=== PATIENT | female | born 1980 | race Caucasian/White ===

== ENCOUNTER → 2021-01-26 13:56 | Outpatient (CLI) | payer OTHER, SELFPAY ==
--- NOTE | ~2021-01-26 | US_ITS ---
EXAMINATION: US pelvic complete DATE: 01/26/2021 14:21 INDICATION: Abnormal uterine bleeding TECHNIQUE: Multiple transabdominal and endovaginal sonographic images of the pelvis were obtained. COMPARISON: None. FINDINGS: The uterus measures 9.7 x 4.7 x 5.5 cm. The endometrial complex measures 8 mm. The right ov syed measures 2.7 x 1.3 x 1.9 cm. The left ovary measures 2.9 x 2.4 x 3.0 cm. There is normal vascular flow in the ovaries. There is no free fluid in the pelvis. IMPRESSION: 1. No sonographic correlate for the patient's symptoms. Reviewed, dictated and finalized at location A.
--- NOTE | ~2021-01-26 | MM_ITS ---
EXAMINATION: MM screening karina BI w iggy HISTORY: Screening mammogram TECHNIQUE: Craniocaudal and mediolateral oblique 3-D tomosynthesis images were obtained and synthetic 2-D images were generated. Bilateral rotated lateral cc views. CAD analysis was submitted and interp reted. COMPARISON: 04/16/2019 bilateral diagnostic digital mammogram and limited right breast ultrasound exam ination BREAST PARENCHYMAL COMPOSITION: There are scattered areas of fibroglandular density. FINDINGS: There is interval mild enlargement of a previously biopsied posterior 2:00 upper inner quad rant incompletely irregular right breast mass, currently measuring up to 11-12 mm compared to 8.8 mm on 04/12/2019. There is an adjacent biopsy marker. Diagnostic right mammogram and right breast ultraso und examination are recommended. Otherwise there is no evidence of suspicious mass, calcification, or architectural distortion to sugg est malignancy in either breast. There has been no other suspicious interval change. IMPRESSION: 1. Interval enlargement of posterior upper inner quadrant right breast mass 2. Diagnostic right mammogram and right breast ultrasound examination are recommended. BI-RADS Category 0: Incomplete: Needs additional imaging evaluation. Reviewed, dictated and finalized at location A. IMPRESSION: 1. Interval enlargement of posterior upper inner quadrant right breast mass 2. Diagnostic right mammogram and right breast ultrasound examination are recom mended. BI-RADS Category 0: Incomplete: Needs additional imaging evaluation.
== END ==
PROVIDERS: Visit Provider Nurse Practitioner
DX: N93.8 Other specified abnormal uterine and vaginal bleeding (principal); Z12.31 Encounter for screening mammogram for malignant neoplasm of breast; R92.8 Other abnormal and inconclusive findings on diagnostic imaging of breast
CPT/HCPCS: 76856; 77063; 77067

== ENCOUNTER → 2021-02-18 08:52 | Outpatient (CLI) | payer OTHER, SELFPAY ==
--- NOTE | ~2021-02-18 | MMUS_ITS ---
EXAMINATION: MM diagnostic mammo unilat RT, US breast RT limited HISTORY: Interval enlargement of soft tissue mass in posterior upper inner right breast since 05/23/20 19 TECHNIQUE: Additional 3-D tomosynthesis images of the right breast were performed and synthetic 2-D i mages were generated. CAD analysis was submitted and interpreted. High resolution upper inner quadran t right breast ultrasound was performed. COMPARISON: 01/26/2021, 05/23/2019 bilateral digital screening mammogram examinations FINDINGS: MAMMOGRAPHIC FINDINGS: Again noted is a biopsy marker adjacent to a circumscribed irregular up to 9 x 15 mm opacity in the p osterior aspect of the upper inner quadrant of the right breast. This is increased from approximately 7 x 8.4 mm since 05/23/2019 mammogram, at which time the biopsy marker was also present. ULTRASOUND: There is an irregular circumscribed hypoechoic solid lesion with internal vascularity at 2:00 5 cm fr om the nipple. The lesion measures up to approximately 10.6 x 9.5 x 11.5 mm. (This previously measure d 7.5 x 7.3 x 10 mm on 04/16/2019 ultrasound examination.) There is a prominent irregular tongue-like projection posteriorly. No posterior features are noted. Increased size and irregular margins and the posterior soft tissue projection are of concern for poss ible malignancy. Ultrasound-guided biopsy is recommended. IMPRESSION: 1. Substantial increased size of posterior upper inner quadrant irregular right breast mass with susp icious sonographic features since 04/12/2019 2. Ultrasound biopsy is recommended BI-RADS category 4, suspicious findings. Dr. Smith telephoned the report and ultrasound guided biopsy recommendation on 02/10/2021 at 1120 hours to Nurse Jacobo at Dr. Bhakta's office. Reviewed, dictated and finalized at location A. IMPRESSION: 1. Substantial increased size of posterior upper inner quadrant irregular right breast mass with suspicious sonographic features since 04/12/2019 2. Ultrasound biopsy is recommended BI-RADS category 4, suspicious findings. Dr. Smith telephoned the report and ultrasound guided biopsy recommendation on at 1120 hours to Nurse Odalis at Dr. Bhakta's office.
== END ==
PROVIDERS: Visit Provider Obstetrics & Gynecology Gynecology
DX: R92.8 Other abnormal and inconclusive findings on diagnostic imaging of breast (principal)
CPT/HCPCS: 76642; 77065

== ENCOUNTER → 2021-03-13 07:59 | Outpatient (CLI) | payer OTHER, SELFPAY ==
[2021-03-13 19:22] LABS: SARS-CoV-2 RNA PCR Negative
== END ==
PROVIDERS: Visit Provider Obstetrics & Gynecology Gynecology
DX: Z01.812 Encounter for preprocedural laboratory examination (principal); Z20.822 Contact with and (suspected) exposure to COVID-19
CPT/HCPCS: C9803; U0003; U0005

== ENCOUNTER 2021-03-16 01:14 | Day surgery (SDC) | payer OTHER, SELFPAY ==
[2021-03-10 08:36] VITALS: BMI 20.1
--- NOTE | 2021-03-16 07:33 | WPDHPUPDATE1 ---
History and Physical Update Update Date/Time: 03/16/21 07:33 History and Physical has been reviewed, including an updated exam of the patient. There are NO changes in the patient's condition. Risks, benefits, and alternatives have been discussed and questions answered. Patient agrees to proceed with procedure.
--- NOTE | 2021-03-16 07:33 | PM.HPGS ---
History of Present Illness History of Present Illness Consent: Risks, benefits, and alternatives have been discussed and questions answered. Patient agrees to proceed with procedure. Chief complaint: abnormal uterine bleeding Narrative: Bianca Fitzgerald is a 40 year old female with recent change in her cycles. Patient has been bleeding every 18 days to 39 days. Flow is normal and the cycles are regular in length. Patient also complained of new onset vaginal dryness, pain with intercourse, and vasomotor symptoms. Pelvic ultrasound was performed and is normal. Was recommended to further evaluate with hysteroscopy and D&C. Risks of bleeding, infection, perforation, and fluid imbalance are reviewed. Patient voices understanding and agrees to proceed. Review of Systems Review of Systems: Narrative: not repeated day of surgery; patient states no changes in status Constitutional: Constitutional: Reports fatigue ENT: Reports other (hayfever) Genitourinary: Genitourinary: Reports as per HPI Musculoskeletal: Musculoskeletal: Reports arthralgias Neurologic: Reports headache(s) [facility] Past Medical History Medical History (Updated 03/16/21 @ 07:55 by Nicole Bhakta MD) Jesús-Danlos syndrome (normal spontaneous vaginal delivery) x 4 Surgical History Surgical History (Updated 03/16/21 @ 07:53 by Nicole Bhakta MD) S/P appy S/P bilateral breast reduction S/P breast biopsy 2018 and 2020 benign Social History Social History Smoking status: Never smoker Alcohol intake: never Substance use: never Living arrangements: with family Additional living arrangements comments: & 4 SONS Spiritual care concerns: No Meds Home Medications and Allergies Home Medications Medication Instructions Recorded Confirmed Type ergocalciferol (vitamin D2) 50,000 unit PO WEEKLY 03/10/21 03/10/21 History ibuprofen 600 mg PO Q6H PRN 03/10/21 03/10/21 History Allergies Allergy/AdvReac Type Severity Reaction Status Date / Time erythromycin base AdvReac Mild Vomiting Unverified 03/10/21 08:34 Penicillins AdvReac Mild Vomiting Unverified 03/10/21 08:34 Exam Const: General: healthy appearing and alert Orientation/consciousness: patient oriented x3 Resp: Effort & Inspection: normal respiratory effort Auscultation: clear to auscultation bilaterally Cardio: Rate: regular rate Rhythm: regular rhythm GI: GI Palp: Yes Soft to palpation, No Tenderness to palpation present (GI) and No Palpable mass present : External Female Exam: normal external appearance Speculum Exam - Vagina: normal appearance of the vagina and normal vaginal discharge Speculum Exam - Cervix: normal appearance of the cervix Bimanual exam- vagina & uterus: uterine size normal and consistency normal Bimanual Exam- Adnexa, other: normal adnexae and No adnexal tenderness Neuro: General: patient oriented x3 Assessment and Plan Assessment and plan (1) Metrorrhagia: Code(s): N92.1 - Excessive and frequent menstruation with irregular cycle Status: Acute Assessment and Plan: The plan is proceed with D&C hysteroscopy
--- NOTE | 2021-03-16 09:31 | WPDANESEPPF ---
Anes - Initial Pre Proc Eval Procedure: Operation Date: 03/16/21 11:15 Proposed Procedures p Hysteroscopy Dilation and Curettage - Nicole Bhakta MD Date/Time: 03/16/21 09:31 Surgeon: Nicole Bhakta MD Pre Op Diagnosis: abnormal uterine bleeding Patient Data Age: 40 Gender: F Height: 1.65 m Weight: 55 kg Allergies Allergy/AdvReac Type Severity Reaction Status Date / Time erythromycin base AdvReac Mild Vomiting Unverified 03/16/21 10:03 Penicillins AdvReac Mild Vomiting Unverified 03/16/21 10:03 Home Medications Medication Instructions Recorded Confirmed Type ergocalciferol (vitamin D2) 50,000 unit PO WEEKLY 03/10/21 03/16/21 History ibuprofen 600 mg PO Q6H PRN 03/10/21 03/16/21 History Patient hx anesthesia problems: none Family hx anesthesia problems: none PMFSH Past Medical History Medical History (Updated 03/16/21 @ 07:55 by Nicole Bhakta MD) Jesús-Danlos syndrome (normal spontaneous vaginal delivery) x 4 Surgical History Surgical History (Updated 03/16/21 @ 07:53 by Nicole Bhakta MD) S/P appy S/P bilateral breast reduction S/P breast biopsy 2018 and 2020 benign Social History Social History Smoking status: Never smoker Alcohol intake: never Substance use: never Living arrangements: with family Additional living arrangements comments: & 4 SONS Spiritual care concerns: No Anes - Eval Final PreProcedure Day of Procedure 03/16/21 09:31 Patient weight: normal Heart: regular rate and rhythm Lungs: clear to auscultation and normal air movement Airway: Mallampati scale class II Neurological: alert and oriented Last oral intake: >/= 8 hours ASA classification: III Emergent: no Anesthetic plan: proceed Anesthesia type and monitoring: general GIVS and standard monitoring Informed Consent: The patient's anesthetic plan and its attendant risks and benefits were discussed with the patient/family/POA. Questions were solicited and answers provided to the satisfaction of the patient/family/POA.
[2021-03-16 09:39] VITALS: BP 121/56; PULSE 98; RESP 16; TEMP 36.3; O2SAT 100
[2021-03-16] MEDS: ACETAMINOPHEN 500 MG TABLET 1000 MG PO (09:58)
[2021-03-16] MEDS: LACTATED RINGERS 1,000 ML 30 ML IV CONT (10:38)
--- NOTE | 2021-03-16 10:45 | P.OP_ITS ---
Procedure Note - Detailed Date of procedure: 03/16/21 Pre-op diagnosis: abnormal uterine bleeding Post-op diagnosis: same Procedure performed: D and C hysteroscopy Description of procedure: The patient was taken to the operating room and placed under anesthesia in the dorsal lithotomy position. She is prepped and draped in the usual sterile fashion. Stratford speculum was placed in the vagina, cervix is grasped on the anterior lip with a tenaculum, and injected with 1% lidocaine in each quadrant. The uterus is sounded to 8cm. The cervix was serially dilated with Hegars. The diagnostic hysteroscope was placed with no abnormalities no nicolasa. Hysteroscope was removed and the medium sharp curette used to sharply curette the endometrium until a good uterine cry was noted in all areas. All instruments were then removed. Sponge, needle, and instrument counts are correct per the OR staff. Patient was awakened from anesthesia and taken to recovery in stable condition. Anesthesia: MAC and local Surgeon: Nicole Bhakta MD Estimated blood loss (mL): 5 Drains: No Packing: No Pathology: yes (Endometrial curettings) Complications: No immediate complications Condition: stable Disposition: PACU Findings: The uterus sounds to 8cm and appears grossly normal
[2021-03-16 10:49] VITALS: BP 99/56; PULSE 73; RESP 16; O2SAT 99
[2021-03-16 11:15] VITALS: BP 94/59; PULSE 61; RESP 20
[2021-03-16 11:45] VITALS: BP 109/61; PULSE 60; RESP 20
[2021-03-16 12:15] VITALS: BP 114/70; PULSE 68; RESP 20
== END 2021-03-16 12:22 | disposition home or self-care (01) ==
PROVIDERS: PCP Internal Medicine; Visit Provider Obstetrics & Gynecology Gynecology
PROC: 0U5B8ZZ Destruction of Endometrium, Via Natural or Artificial Opening Endoscopic (ICD-10-PCS; CPT 58563; principal; 2021-03-16 11:15)
DX: N93.9 Abnormal uterine and vaginal bleeding, unspecified (principal); Q79.60 Ehlers-Danlos syndrome, unspecified
CPT/HCPCS: 58558; 88305; A9270; C9803; J2250; J2704; J3010; J7030; J7120; U0003; U0005

== ENCOUNTER 2021-07-18 10:09 | Emergency (ER) | payer OTHER, SELFPAY ==
[2021-07-18 10:25] VITALS: BP 131/84; PULSE 115; RESP 18; TEMP 36.8; O2SAT 100
--- NOTE | 2021-07-18 11:03 | ED.SKABFB ---
HPI - Skin/Abscess/Foreign Bdy General Chief complaint: Skin/Abscess/Foreign Body Stated complaint: Spider Bite Lt upper arm Source: patient and RN notes reviewed Limitations: no limitations History of Present Illness HPI narrative: The patient, who hs a history of Raynaud's syndrome and Jesús-Danlos on minimal meds, presents with insect bite. Patient requests systemic steroids and antibiotics for a shorter 1 morning history of insect bite to her left upper extremity. Patient states she got bitten by a spider, as a brown recluse was reportedly seen on pillow upon awakening. No fever, abscess/induration, streaking, hives; she reports penicillin and E-Mycin sensitivity manifested by vomiting Related Data Home Medications Medication Instructions Recorded Confirmed ergocalciferol (vitamin D2) 50,000 unit PO WEEKLY 03/10/21 07/18/21 amitriptyline 25 mg PO DAILY 07/18/21 07/18/21 nifedipine 30 mg PO DAILY 07/18/21 07/18/21 norethindrone-e.estradiol-iron [Lo 1 tablet PO DAILY 07/18/21 07/18/21 Loestrin Fe] rizatriptan 10 mg PO DAILY PRN 07/18/21 07/18/21 Allergies Allergy/AdvReac Type Severity Reaction Status Date / Time erythromycin base AdvReac Intermediate Vomiting Verified 07/18/21 10:42 Penicillins AdvReac Intermediate Vomiting Verified 07/18/21 10:42 Review of Systems Review of Systems: General/Constitutional: No weight loss,fever Eyes: N0: Redness,discharge Ears/Nose/Throat: No: Epistaxis,ear discharge Respiratory: Denies: Hemoptysis Gastrointestinal: No Vomiting, Bleeding-rectal Skin: No Lumps, REPORTS eruption Neurologic: No Focal Weakness,Sz Hematologic: Denies: Petechiae/Purpura Psychiatric: No: Suicida ideationl All Other Systems: Reviewed and Negative [facility] Past Medical History Medical History (Updated 07/18/21 @ 11:09 by Donaldo Sarah MD) Jesús-Danlos syndrome (normal spontaneous vaginal delivery) x 4 Surgical History Surgical History (Updated 03/16/21 @ 07:53 by Nicole Bhakta MD) S/P appy S/P bilateral breast reduction S/P breast biopsy 2018 and 2020 benign Social History Social History Smoking status: Never smoker Alcohol intake: never Substance use: never Additional living arrangements comments: & 4 SONS Spiritual care concerns: No Comments At time of signature, agree with nursing past medical, surgical, social and family history. There is no relevant family history pertinent to the presenting complaint Exam Narrative: General Appearance: Well nourished, Normocephalic Eye: PERRLA, Conjunctiva clear Mouth/Throat: Normal appearing Neck Exam: Supple Respiratory: Airway patent, No respiratory distress Musculoskeletal: Moves all extremities, Non tender Skin: Warm, Dry ; smaller half-dollar size macular papular, annular eruption with central puncta on the inner left arm Neurological: A&O x3 Psychiatric: Normal mood, Normal affect Course Vital Signs Vital signs: Vital Signs Temperature 98.2 F 07/18/21 10:25 Pulse Rate 115 H 07/18/21 10:25 Respiratory Rate 18 07/18/21 10:25 Blood Pressure 131/84 07/18/21 10:25 Pulse Oximetry 100 07/18/21 10:25 Temperature 98.2 F 07/18/21 10:25 Pulse Rate 115 H 07/18/21 10:25 Respiratory Rate 18 07/18/21 10:25 Blood Pressure 131/84 07/18/21 10:25 Pulse Oximetry 100 07/18/21 10:25 Discharge Plan Discharge Clinical Impression: Insect bite Qualifiers: Encounter type: initial encounter Site of insect bite: upper arm Laterality: left Qualified Code(s): S40.862A - Insect bite (nonvenomous) of left upper arm, initial encounter Patient Disposition: Home, Self-Care Condition: Stable Instructions: Insect Bite or Sting (ED) Additional Instructions: Take clindamycin with probiotic, antacid or food; stop if diarrhea occurs Prescriptions: New clindamycin HCl 300 mg capsule 300 mg PO TID Qty: 15 RF: 0 mupirocin 2 % ointment 1 a
== END 2021-07-18 11:13 | disposition home or self-care (01) ==
PROVIDERS: Emergency Provider Emergency Medicine; PCP Internal Medicine
DX: T63.301A Toxic effect of unspecified spider venom, accidental (unintentional), initial encounter (principal)
CPT/HCPCS: 99213; G0463

== ENCOUNTER 2021-07-24 17:54 | Emergency (ER) | payer OTHER, SELFPAY ==
[2021-07-24 18:22] VITALS: BP 129/75; PULSE 99; RESP 14; TEMP 37; O2SAT 99
[2021-07-24 21:38] VITALS: BP 136/71; PULSE 88; RESP 18; TEMP 37.2; O2SAT 98
[2021-07-24 21:48] VITALS: BP 136/71; PULSE 88; RESP 18; TEMP 37.2; O2SAT 98
[2021-07-24 21:53] LABS: Basophils Percent Auto 0.2 % (0.2-1.2); Hemoglobin 13.8 g/dL (12.0-15.0); Immature Granulocyte Absolute 0.05 K/mm3 (0.00-0.031); Immature Granulocyte Percent A 0.6 % (0-0.5); Lymphocytes Absolute Auto 1.39 K/mm3 (0.9-3.2); Lymphocytes Percent Auto 15.5 % (18.3-44.2); Mean Corpuscular HGB Conc 34.5 g/dl (32-36); Mean Corpuscular Hemoglobin 32.6 pg (26-34); Mean Corpuscular Volume 94.6 fl (80-100); Mean Platelet Volume 9.7 fl (7.4-10.4); Monocytes Absolute Auto 0.3 K/mm3 (0.1-0.6); Monocytes Percent Auto 3.2 % (2.6-8.5); Neutrophils Absolute Auto 7.2 K/mm3 (1.3-6.7); Neutrophils Percent Auto 80.5 % (45.5-73.1); Platelet Count Result 421 k/mm3 (150-375); Red Blood Count 4.23 M/mm3 (4.2-5.4); Red Cell Distribution Width 12.4 % (11.5-14.5)
[2021-07-24 22:07] LABS: Anion Gap 12 mmol/L (8-16); Blood Urea Nitrogen 11 mg/dL (7-17); CRP < 0.5 mg/dL (<1.0); Calcium 9.4 mg/dL (8.4-10.2); Carbon Dioxide 20 mmol/L (22-30); Chloride 105 mmol/L (98-107); Estimated CRCL calculation 72 ml/min; Estimated Glomerular Filt Rate > 60; Glucose 123 mg/dL (65-110); Potassium 4.3 mmol/L (3.4-5.0); Sodium 137 mmol/L (137-145)
--- NOTE | 2021-07-24 22:08 | ED.WOUNDLAC ---
HPI - Wound/Laceration General Chief Complaint: Wound/Laceration Stated Complaint: SPIDER BITE, SENT FOR IV ABX/US Time Seen by Provider: 07/24/21 21:51 Source: patient Mode of arrival: ambulatory Limitations: no limitations History of Present Illness HPI narrative: 41-year-old female Here for follow-up on recluse spider bite to her left arm Patient is a who presents certain that she was in fact bitten by a brown recluse as she found a spider on her pillow in the morning prior to developing symptoms, and she lives in a house which is over 100 years old and has been known to harbor brown recluse This initially happened on Tuesday 6+ days ago, and she was first seen at an urgent care with pain and redness at the site on her left arm, and some generalized possibly urticarial rash and was prescribed clindamycin and a steroid taper at that time, presumably in case she actually had a MRSA infection not a bite After approximately 48 hours she had not improved and was switched by her primary physician to 1 double strength Bactrim twice a day Her systemic and cutaneous signs have basically resolved but she continues to have superficial erythema and a pretty widespread area surrounding the initial bite site and it was considered that she possibly might need additional antibiotics She does not have any fever and there is no skin breakdown at the site at this time Related Data Home Medications Medication Instructions Recorded Confirmed ergocalciferol (vitamin D2) 50,000 unit PO WEEKLY 03/10/21 07/18/21 amitriptyline 25 mg PO DAILY 07/18/21 07/18/21 nifedipine 30 mg PO DAILY 07/18/21 07/18/21 norethindrone-e.estradiol-iron [Lo 1 tablet PO DAILY 07/18/21 07/18/21 Loestrin Fe] rizatriptan 10 mg PO DAILY PRN 07/18/21 07/18/21 Allergies Allergy/AdvReac Type Severity Reaction Status Date / Time erythromycin base AdvReac Intermediate Vomiting Verified 07/24/21 21:52 Penicillins AdvReac Intermediate Vomiting Verified 07/24/21 21:52 Review of Systems Constitutional: Constitutional: Denies chills and Denies fever(s) Respiratory: Respiratory: Denies wheezing Integumentary/Breasts: Skin/Breast: Reports erythema and Reports rash Allergic/Immunologic: Allergic/Immunologic: Denies lip swelling, Denies throat swelling and Denies tongue swelling PMFSH Past Medical History Medical History Jesús-Danlos syndrome (normal spontaneous vaginal delivery) x 4 Surgical History Surgical History (Updated 03/16/21 @ 07:53 by Nicole Bhakta MD) S/P appy S/P bilateral breast reduction S/P breast biopsy 2018 and 2020 benign Social History Social History Smoking status: Never smoker Alcohol intake: never Substance use: never Additional living arrangements comments: & 4 SONS Spiritual care concerns: No Exam Const: General: cooperative, healthy appearing, no acute distress and alert Orientation/consciousness: patient oriented x3 (alert) HENMT: Head: normal to inspection, normocephalic and atraumatic Eyes: Conjunctivae: conjunctivae normal EOM: EOMs intact bilaterally Neck: Neck: supple and no JVD Resp: Effort & Inspection: normal respiratory effort and not labored Auscultation: other (BS =) Skin: General skin exam: no rashes or lesions noted Other: Rash/redness left arm Neuro: General: patient oriented x3 (alert) and moves all extremities Speech: normal speech Extrem: Other: Left arm with slight ecchymosis at the bite site and a fairly large area of superficial erythema extending 6 or 8 cm proximally and 8 or 10 cm distally but no evidence of a pustule or abscess Psych: Affect: normal affect Course Course Emergency Course: Labs are essentially normal With patient that given her certainty of the brown recluse bite there essentially is no recommended treatment at this stage, an
[2021-07-24 22:21] VITALS: BP 130/70; PULSE 80; RESP 18; O2SAT 99
[2021-07-24 22:23] LABS: Erythrocyte Sedimentation Rate 13 mm/hr (0-20)
== END 2021-07-24 22:22 | disposition home or self-care (01) ==
PROVIDERS: Physician Assistant; Emergency Provider Emergency Medicine; PCP Internal Medicine
DX: T63.331A Toxic effect of venom of brown recluse spider, accidental (unintentional), initial encounter (principal); Q79.60 Ehlers-Danlos syndrome, unspecified
CPT/HCPCS: 36415; 80048; 85025; 85652; 86140; 99283

== ENCOUNTER 2025-07-02 08:53 | Outpatient (CLI) | payer OTHER, SELFPAY ==
--- NOTE | ~2025-07-02 | US_ITS ---
EXAMINATION: US pelvic complete DATE: 07/02/2025 09:13 INDICATION: Other specified abnormal uterine and vaginal bleeding. TECHNIQUE: Multiple transabdominal sonographic images of the pelvis were obtained. COMPARISON: Ultrasound 01/26/2021 FINDINGS: The uterus measures 9.1 x 3.8 x 4.6 cm. There is no free fluid in the pelvis. The endometrial complex measures 6 mm in thickness. The right ovary measures 2.8 x 1.6 x 1.7 cm. The left ovary measures 2.1 x 1.3 x 2.0 cm. There is normal vascular flow in the ovaries. IMPRESSION: 1. Normal pelvis. Reviewed, dictated and finalized at location E. IMPRESSION: 1. Normal pelvis.
== END 2025-07-02 08:54 | disposition home or self-care (01) ==
LOC: MICIMG 08:54
DX: N93.8 Other specified abnormal uterine and vaginal bleeding (principal)
CPT/HCPCS: 76856

== ENCOUNTER 2025-07-15 01:46 | Day surgery (SDC) | payer OTHER, SELFPAY ==
--- OUTSIDE RECORDS SUMMARY | 2013-10-01 11:30 | XMS_ITS | Continuity of Care Document ---
Author Organization [facility] Address [address] [place] [address] [address] [place] [address] Phone Care Team Providers Care Moisture Meter Reader Name Role Phone Carri PT, MSGordy Unavailable Unavailable Procedures Procedure Date PT RE-EVALUATION THERAPEUTIC EXERCISES NEUROMUSCULAR RE-ED HOT/COLD PACK THERAPEUTIC EXERCISES NEUROMUSCULAR RE-ED HOT/COLD PACK THERAPEUTIC EXERCISES NEUROMUSCULAR RE-ED HOT/COLD PACK THERAPEUTIC EXERCISES NEUROMUSCULAR RE-ED HOT/COLD PACK THERAPEUTIC EXERCISES NEUROMUSCULAR RE-ED HOT/COLD PACK THERAPEUTIC EXERCISES NEUROMUSCULAR RE-ED HOT/COLD PACK THERAPEUTIC EXERCISES NEUROMUSCULAR RE-ED HOT/COLD PACK PT EVALUATION THERAPEUTIC EXERCISES Advance Directives Directive Yes / No Effective Date File Name No Information Encounters Encounter Description Practice Location Reason(s) For Visit Diagnoses Date Provider Providers Copied on Encounter [facility], [address] [place], [place] [address], [place], [place], [id number], tel:[phone] April No Information 3 Carri Kaminski. [address] [facility], [address], [place], [address], [place]. tel: [phone] Referring Provider: Donaldo Bayes, [address], [place], [address]. tel:[phone] [address], [place], [place], [id number], [place] tel:[phone] [place] No Information 3 Carri Gordy. [address] [place] [address], [address], [place], [address], [place]. tel: [phone] Referring Provider: Donaldo Bains, [address], [place], [address]. tel:[phone] [address], [place], [place], [id number], [place] tel:[phone] [place] No Information 3 Carri Gordy. [address] [place] [address], [address], [place], [address], [place]. tel: [phone] Referring Provider: Donaldo Bains, [address], [place], [address]. tel:[phone] [address], [place], [place], [id number], [place] tel:[phone] [place] No Information 3 Carri Gordy. [address] [place] [address], [address], [place], [address], [place]. tel: [phone] Referring Provider: Donaldo Bains, [address], [place], [address]. tel:[phone] [address], [place], [place], [id number], [place] tel:[phone] [place] No Information 3 Carri Gordy. [address] [place] [address], [address], [place], [address], [place]. tel: [phone] Referring Provider: Donaldo Bains, [address], [place], [address]. tel:[phone], [place], [place], [id number], tel:[phone] [place] No Information 3 Carri Kaminski. [address] [place] [address], [address], [place], [place], [facility], . tel: [phone] Referring Provider: Donaldo Bains [address], [facility] [place], [place], [facility]. tel:[phone], [id number], tel:[phone] [place] No Information 3 Carri Kaminski. [address] [place] [address], [address], [place], [place], [facility], . tel: [phone] Referring Provider: Donaldo Bains [address], [facility] [place], [place], [facility]. tel:[phone] [place] [address], [place], [place], [id number], tel:[phone] [place] Pain in joint involving shoulder region 3 Carri Kaminski. [address] [place] [address], [address], [place], [place], [facility], . tel: [phone] Referring Provider: Donaldo Bains [address], [facility] [place], [facility]. tel:[phone] Family History Family Member Type Diagnosis Age At Onset No Information Payers Payer name Insurance type Covered constitution party ID Authorraleigha tawana(s) [facility] CI [id number] Social History Type Description Quantity Date Captured Comments Sex Female Smoking Status No Information Chief Complaint And Reason For Visit No Information Reason For Referral Reason For Referral No Information History Of Present Illness Encounter Date Complaint History Of Prese nt Illness No Information Functional Status Date Functional Assessmen t No Information Instructions Date Instruction Additional Infor mation No Information Assessments Type Assessment Date No Information Patient Care Teams Name Effective Dates (start - stop) Status Members No Information
--- OUTSIDE RECORDS SUMMARY | 2025-07-02 10:00 | XMS_ITS | Continuity of Care Document ---
Author Organization [facility] Address [address] [place] [phone] Phone Care Team Providers Care Hander In Name Role Phone Efrain ROBERTS, FACC, FAUSTINO, Carlos Unavailable U navailable Allergies, Adverse Reactions, Alerts Substance Reaction Status Criticality adhesive tape EdemaHives / Skin Rash Active No I nformation erythromycin base Vomiting Active No Informa tion AMOXICILLIN TRIHYDRATE Vomiting Active No In formation Medications Medication Instructions Dosage Effective Dates (start - stop) Status Comments Ubrelvy 100 mg tablet take 1 tablet by oral route once may repeat dose once after 2 hours if needed, not to exceed 200 mg in24 hours 100 MG - Active betamethasone dipropionate 0.05 % topical cream apply by topical route every day a thin layer to the affected area(s) 0.00 - Active Qulipta 60 mg tablet take 1 tablet by oral route every day 60 MG - Active Naltrex 4.5 mg capsule take 1 pill a day - Active hyoscyamine ER 0.375 mg tablet,extended release,12 hr TAKE 1 TABLET BY MOUTH EVERY 12 HOURS NEEDED FOR CRAMPING - Active eletriptan 20 mg tablet TAKE ONE TABLET BY MOUTH ONCE NEEDED FOR MIGRAINE, MAY REPEAT ONCE AFTER 2 HOURS. - No Longer Active Procedures Procedure Date OFFICE/OUTPATIENT VISIT, NEW ELECTROCARDIOGRAM, COMPLETE EXTREMITY STUDY LOWER EXT OFFICE/OUTPATIENT VISIT, EST Advance Directives Directive Yes / No Effective Date File Name Other Directive No N/A N/A WARNING:The information contained in this section is historical and is provided for information only and does not constitute a legal document or any assurance that the information is still accurate. Please verify the information with the cunningham of the legal document before using it for clinical purposes. Encounters Encounter Description Practice Location Reason(s) For Visit Diagnoses Date Provider Providers Copied on Encounter OFFICE/OUTPAT IENT VISIT, [facility], [address] [place] [address], [id number], tel:[phone] [facility] cardiology examination (chief complaint) Eczema 5 Shamim Carlos. [address] [place] [address], [id number] , [place]. [phone] Referring Provider: [address], [place], [address]. tel:[phone] [facility] , [address] [place] [address], [id number], tel:[phone] [facility] Sofi No Information Saheta Sanjaya. [address] [place] [address], [id number] , [place]. [phone] Referring Provider: [address], [place], [address]. tel:[phone] OFFICE/OUTPAT IENT VISIT, [facility] , [address] [place] [address], [id number], tel:[phone] [facility] Sofi rt leg rash (chief complaint) Venous insufficiency of leg 5 Saheta Sanjaya. [facility] [place], [place], [id number] , [place]. [phone] Referring Provider: [address], [place], [address]. tel:[phone] Family History Family Member Type Diagnosis Age At Onset Father Problem (finding) Myocardial infarction Mother Problem (finding) Aneurysm Father Problem (finding) Stroke Father Problem (finding) High cholesterol Paternal grandmother Problem (finding) Cancer Father Problem (finding) Lung disease Maternal grandmother Problem (finding) Cancer Father Problem (finding) Hypertension Mother Problem (finding) Cardiac arrhythmias Mother Problem (finding) Hypertension Maternal grandfather Problem (finding) Aneurysm Payers Payer name Insurance type Covered green party ID Vasyl gilliam(s) MAX CHOICE POS II CI [id number] Social History Type Description Quantity Date Captured Comments Alcohol Use Details No Caffeine Use Details Unknown Tobacco Use Status Current non-smoker Smoking Status Never smoker Non-Smoking Tobacco Use Details : No Details Available : No Details Available Sex Female Vital Signs Date / Time: Height Weight BMI Pulse Rate Blood Pressure Temperature Respiratory Rate Body Surface Area Head Circumference Head Circ. Percentile Wt./Dejan. Percentile BMI percentile Pulse Ox Inhaled Ox 2:46 PM 65.00 in 52.889 kg (116.60 lbs) 19.4 0 kg/m eter (2) 75 /min 18 /min 100 % Chief Complaint And Reason For Visit From encounter dated '07/02/2025 15:00'. cardiology examination (chief complaint) Reason For Referral Reason For Referral No Information Plan Of Treatment Date Type Action Status Future Order: Radiology Order Ve nous Doppler For Insuffciency ([id number]), Ordered on: Ordered Future Order: Radiology Order Ve nous Doppler For Insuffciency ([id number]), Ordered on: Ordered History Of Present Illness Encounter Date Complaint History Of Prese nt Illness cardiology examination rt leg rash rt leg rash and sometimes does swell Functional Status Date Functional Assessmen t No Information Instructions Date Instruction Additional Infor mation No Information Assessments Type Assessment Date assessment Eczema Patient Care Teams Name Effective Dates (start - stop) Status Members No Information
[2025-07-09 10:41] VITALS: BMI 19.1
--- NOTE | 2025-07-09 10:49 | PC.NURSE ---
Report to the Outpatient Waiting Room, entrance under the green pavilion located off [facility], at time _0745_ on date _[id number]_. Planned Procedure Time: _0945_.? Time changes happen often and if your time is changed the preop area will call you the afternoon before. - You and your visitor will be asked to self-screen and do not enter if you have any COVID symptoms. Please call surgeon if you need to reschedule. - A mask is optional within the hospital at this time. Patients may have clear liquids (water, carbonated beverages, clear teas, apple juice) until 3 hours prior to surgery with a maximum of 20 ounces. - No food from midnight until time of surgery and no smoking, or chewing tobacco (or any form of nicotine). No chewing gum, candy or mints. Take only the following medications with a SIP of water on the morning of surgery: ___None____ DO NOT STOP ANY OF YOUR OTHER PRESCRIPTION MEDICATIONS PRIOR TO SURGERY EXCEPT THE FOLLOWING Hold all vitamins and supplements for 3 days per anesthesiologist. Medications to discontinue per physician Date to take last dose Please no make-up, nail saudi arabian, hairspray, perfume, deodorant, or body powder the day of surgery.? No jewelry (including any body piercings) or valuables the day of surgery, leave them at home.? Please take a shower or bath the night before, or the morning of, surgery with an antibacterial soap.? Wear comfortable, loose fitting clothing.? - Jewelry must be removed prior to entering the operating room.? Rings and piercings that are not removed may be cut off. - The hospital will not accept responsibility for valuables.? - Please leave all valuables, including medications, at home the day of surgery. If you are going home after surgery, a licensed auto haulaway driver must drive you home.? - NO public transportation without another adult if you receive anesthesia. - We recommend that an adult stay with you for 24 hours following discharge. - We also recommend that you do not drive, make important decision, drink alcoholic beverages, or take any drugs that were not prescribed by your health care provider for at least 24 hours after your discharge time. Follow any additional instructions given to you from your surgeon. Telephone instructions given to __Shannon__and asked if any additional questions and then verbalized understanding. Patient advised to call surgeon office or pre surgery nurse liaison [phone] if any additional questions.
--- OUTSIDE RECORDS SUMMARY | 2025-07-15 01:48 | XMS_ITS | Encounter Summary ---
Author Organization [facility] Address [address] [place] [address] Care Team Providers Care Director Of Radio Services Name Role Phone Nicole Bhakta MD Unavailable [phone] Radha Bustos NP Primary Care Provider [phone] Encounter Details Date Type Department Care Team (Latest Contact Info) Description 06/11/2025 Results Follow-Up [facility] Primary Care at [address] [address] Radha Bustos, FOSTER [address] [place] [address] [address] [place] [address] CBC with auto differential, Comprehensive metabolic panel, Lipid panel, Additional followed-up results: 2 Social History Tobacco Use Types Packs/Day Years Used Date Smoking Tobacco: Never Smokeless Tobacco: Never AUDIT-C Answer Date Recorded Q1: How often do you have a drink containing alcohol? Never 04/16/2025 Q2: How many drinks containi ng alcohol do you have on a typical day when you are drinking? Patient does not drink Q3: How often do you have si x or more drinks on one occasion? Never 04/16/2025 PHQ-2 Answer Date Recorded PHQ-2 Total Score (If total score is 3 or more points, staff should administer the PHQ-9) 0 05/22/2025 Personal Safety Answer Date Recorded Have you ever been in or are you currently in a harmful physical or emotional relationship or is someone making you feel afraid or unsafe? Denies 11/06/2024 Comments Unknown Sex and Gender Information Value Date Recorded Sex Assigned at Not on file Legal Sex Female 1:40 AM DOOR FRAMER Gender Identity Female 03/09/2021 1:15 PM CDT Sexual Orientation Not on file documented as of this encounter Ordered Prescriptions Prescription Sig Dispense Quantity Refills Last Filled Start Date End Date ergocalciferol (VITAMIN D) 50,000 unit capsule Take 1 capsule (50,000 Units total) by mouth once a week 12 capsule 06/11/2025 documented in this encounter Plan of Treatment Not on file documented as of this encounter Visit Diagnoses Not on filedocumented in this encounter Historical Medications * This list may reflect changes made after this encounter. oxymetazoline 1 % cream With hyaluronic acid topically 05/21/2025 added in this encounter Care Teams Director Of Radio Services Relationship Specialty Start Date End Date Radha Bustos NP [address] [place] [address] PCP - General Family Medicine 04/04/25 Nicole Bhakta MD [address] [place] [address] Referring Physician Gynecology 08/22/24 documented as of this encounter
--- OUTSIDE RECORDS SUMMARY | 2025-07-15 01:48 | XMS_ITS | Encounter Summary ---
Author Organization [facility] Address [address] [place] [address] Care Team Providers Care Inter Com Installer Name Role Phone Miguel Pagan MD Primary Care Provid er None, Provider Primary Care Provider Natalya Cortes MD Primary Care Provider + Encounter Details Date Type Department Care Team (Late st Contact Info) Description 03/31/2023 [employer] Message Enc [facility] Family & Internal Medicine [address] [address], [facility] Provider appt Social History Tobacco Use Types Packs/Day Years Used Date Smoking Tobacco: Never Smokeless Tobacco: Never Alcohol Use Standard Drinks/Week Comments Not Currently 0 (1 standard drink = 0.6 oz pur e alcohol) PHQ-2 Answer Date Recorded Patient Health Questionnaire-2 Score 0 01/17/2023 Comments No Sex and Gender Information Value Date Recorded Sex Assigned at Not on file Legal Sex Female 9:10 PM CDT Gender Identity Female 11/10/2021 7:37 AM CLINICAL DOCUMENTATION CONSULTANT Sexual Orientation Straight 11/10/2021 7: 37 AM CLINICAL DOCUMENTATION CONSULTANT COVID-19 Exposure Response Date Recorded In the last 10 days, have yo u been in contact with someone who was confirmed or suspected to have Coronavirus/COVID-19? No / Unsure 03/30/2023 10:05 AM CDT documented as of this encounter Plan of Treatment Not on file documented as of this encounter Visit Diagnoses Not on filedocumented in this encounter Additional Health Concerns Assessment Noted Time PHQ-9 Depression Total Score: 1 01/18/20 23 10:12 AM CDT documented as of this encounter Care Teams Inter Com Installer Relationship Specialty Start Date End Date Miguel Pagan MD PCP - General Neurology Psychiatry 05/31/23 10/04/23 None, Provider, PCP - General UNKNOWN PHYSICIAN SPECIALTY 10/05/23 Natalya Bunn MD [address] [address] PCP - General FAMILY PRACTICE 05/07/24 07/16/24 documented as of this encounter
--- OUTSIDE RECORDS SUMMARY | 2025-07-15 01:48 | XMS_ITS | Encounter Summary ---
Author Organization [facility] Address [address] [place] [address] Phone Care Team Providers Care Siderographer Name Role Phone Nicole Bhakta MD Unavailable [phone] Radha Bustos NP Primary Care Provider [phone] Encounter Details Date Type Department Care Team (Late st Contact Info) Description 06/20/2025 Results Follow-Up [facility] ([facility]) [facility] Minimally Invasive Surgery [address] [facility] [address], [place] [address] Abhay Mae MD [address] [place] [address] CT Abdomen Pelvis WO Contrast Social History Tobacco Use Types Packs/Day Years [...] on file Legal Sex Female 1:40 AM SEWAGE DISPOSAL ENGINEER Gender Identity Female 03/09/2021 1:15 PM CDT Sexual Orientation Not on file documented as of this encounter Plan of Treatment Not on file documented as of this encounter Visit Diagnoses Not on filedocumented in this encounter Care Teams Siderographer Relationship Specialty Start Date End Date Radha Bustos NP [address] [facility] [address] [place] [address] PCP - General Family Medicine 04/04/25 Nicole Bhakta MD [address] [place] [address] Referring Physician Gynecology 08/22/24 documented as of this encounter
--- OUTSIDE RECORDS SUMMARY | 2025-07-15 01:48 | XMS_ITS | Clinical Summary ---
Author Organization [facility] Address [address] [place] [address] Care Team Providers Care Lumber Loader Name Role Phone Unavailable Primary Care Provider Unavailabl e Allergies Active Allergy Reactions Criticality Noted Date Comments Amoxicillin Unknown,Nausea and Vomiting,Vomiting 08/30/2013 Reaction: Vomiting, Erythromycin Unknown,Nausea and Vomiting,Vomiting 08/30/2013 Reaction: Vomiting, Medications ibuprofen 200 MG tablet Take 1 tablet (200 mg total) by mouth every 6 (six) hours as needed for Pain. Active vitamin D2, ergocalciferol, 73685 UNITS capsule Take 1 capsule (50,000 Units total) by mouth once a week. 05/05/2021 Active LO LOESTRIN FE 1 MG-10 MCG / 10 MCG Tab Take 1 tablet by mouth daily. 03/24/2021 Active eptinezumab-jjmr (VYEPTI) 100 MG/ML Solution injectionIndicat ions:Intractable chronic migraine without aura and without status migrainosus Inject 3 mLs (300 mg total) into the vein every 3 (three) months. 1.12 mL 3 01/04/2023 Active Naltrexone HCl PowderIndication s:Chronic pain syndrome 4.5 mg by Does not apply route nightly. Take 1 capsule (4.5 mg) nightly 0.405 g 3 01/17/2023 Active cyclobenzaprine (FLEXERIL) 10 MG tabletIndication s:Myalgia Take 1 tablet (10 mg total) by mouth 3 (three) times daily as needed for Muscle Spasms. 90 tablet 3 01/17/2023 Active atogepant (QULIPTA) tabletIndication s:Migraine without aura, not intractable, without status migrainosus Take 1 tablet (60 mg total) by mouth daily. 30 tablet 11 10/05/2023 Active Active Problems Problem Noted Date Diagnosed Date Chronic migraine without aura 03/01/2023 Cough 12/26/2017 Acute bronchitis 12/26/2017 Environmental allergies 10/11/2016 Acute conjunctivitis 10/11/2016 Low vitamin D level 07/06/2016 Muscle tremor 09/17/2015 Premenstrual dysphoric disorder 12/20/2013 Dysmenorrhea 09/27/2013 Pain in joint 08/30/2013 Irritable bowel syndrome 08/30/2013 Headache 08/30/2013 Gluten enteropathy 08/30/2013 Fatigue 08/30/2013 Jesús-Danlos syndrome type III (HHS/HCC) 2012 Common migraine without aura 08/30/2013 Resolved Problems Problem Noted Date Diagnosed Date Resolved Date Encounter for preventive health examination 12/01/2012 07/14/2020 Immunizations Immunization Administration Dates Next Due Fluzone 6 Months+ Quad (0.5 mL Prefilled Syringe ) 07/07/2020 Influenza Adult (Generic) 10/30/2012 Tdap (Adacel) 07/27/2021 Family History Medical History Relation Comments No Known Problems Father No Known Problems Mother Relation Status Comments Father Mother Social History Tobacco Use Types Packs/Day Years Used Date Smoking Tobacco: Never Smokeless Tobacco: Never Tobacco Cessation:Counseling Given: No Alcohol Use Standard Drinks/Week Comments Not Currently 0 (1 standard drink = 0.6 oz pur e alcohol) PHQ-2 Answer Date Recorded Patient Health Questionnaire-2 Score 0 01/17/2023 Comments No Sex and Gender Information Value Date Recorded Sex Assigned at Not on file Legal Sex Female 9:10 PM CDT Gender Identity Female 11/10/2021 7:37 AM WATER RESOURCES ENGINEER Sexual Orientation Straight 11/10/2021 7: 37 AM WATER RESOURCES ENGINEER Last Filed Vital Signs Vital Sign Reading Time Taken Comments Blood Pressure 126/67 10/05/2023 11:17 AM WATER RESOURCES ENGINEER Pulse 98 10/05/2023 11:17 AM WATER RESOURCES ENGINEER Temperature 36.5 C (97.7 F) 10/05/2023 11:17 AM WATER RESOURCES ENGINEER Respiratory Rate 16 01/17/2023 10:05 AM CDT Oxygen Saturation 100% 10/05/2023 11:17 AM WATER RESOURCES ENGINEER Inhaled Oxygen Concentration - - Weight 57.4 kg (126 lb 9.6 oz) 10/05/2023 11:17 AM WATER RESOURCES ENGINEER Height 162.6 cm (5' 4) 10/05/2023 11:17 AM WATER RESOURCES ENGINEER Body Mass Index 21.73 10/05/2023 11:17 AM WATER RESOURCES ENGINEER Plan of Treatment Health Maintenance Due Date Last Done Comments Cervical Cancer Screening Pa p Smear (Age 30 to 64) Every 3 Years 1980 Colorectal Cancer Screening Colonoscopy (10 Years) 1980 Annual Physical 1983 Hepatitis B Vaccines (1 of 3 - 19+ 3-dose series) 1999 HPV Vaccines (1 - 3-dose SCD M series) 2007 Cervical Cancer Screening Pa p with HPV Testing (Age 30 to 64) Every 5 Years 2010 Cervical Cancer Screening with HPV 2010 Mammogram Screening 2020 PHQ-2 (Physician [place]) 10/24/2024 COVID-19 Vaccine ( - 2023-2 5 season) 2025 DTaP, Tdap and Td Vaccines ( 2 - Td or Tdap) 07/27/2031 07/27/2021 Hepatitis C Completed 07/07/2020 Meningococcal B Vaccine Aged Out No l onger eligible based on patient's age to complete this topic Meningococcal Vaccine Aged Out No antonio deborah eligible based on patient's age to complete this topic Pneumococcal Vaccine: Pediat rics (0 to 5 Years) and At-Risk Patients (6 to 49 Years) Aged Out No longer eligi ble based on patient's age to complete this topic RSV Immunizations Under 20 Months Aged Out No longer eligible based on patient's age to complete this topic Procedures Procedure Name Priority Date/Time Associated Diagnosis Comments HEPATITIS C RNA W/ REFLX GENOTYPE Routine 07/07/2020 12:16 PM CDT Need for hepatitis C screening test from Last 3 Months or Most Recently Relevant to Health Maintenance Results * HEPATITIS C RNA W/ REFLX GENOTYPE (07/07/2020 12:16 PM CDT) HEPATITIS C RNA PCR QNT <15 IU/mL 07/10/2020 2:25 PM CDT [facility] JOJO SOLORZANO Comment:HCV RNA Not Detected HEP C RNA PCR QNT LOG <1.18 log IU/mL 07/10/2020 2:25 PM CDT [facility] BEAUMAYKEL SOLORZANO Comment: HCV RNA Not Detected Reference Range: Not Detected IU/mL Not Detected Log IU/mL This test was performed using Real-Time Polymerase Chain Reaction. Reportable range is 15 IU/mL to 100,000,000 IU/mL (1.18 Log IU/mL to 8.00 Log IU/mL). For additional information please refer to http://education.[employer]/faq/CGF85i1 (This link is being provided for informational/ educational purposes only.) The analytical performance characteristics of this assay have been determined by [employer] [place], [place]. The modifications have not been cleared or approved by the FDA. This assay has been validated pursuant to the CLIA regulations and is used for clinical purposes. HEPATITIS C VIRAL RNA GENOTYPE REPORT 07/10/2020 2:25 PM CDT [facility] TORRESMAYKEL SOLORZANO Comment: Additional testing for Hepatitis C was not indicated. [facility], [facility], [address] [place] [address] Juan Manuel Oates M.D., Ph.D., Director of Laboratories , CLIA [id number] 07/07/2020 12:1 6 PM CDT Magda Patel MD LABORATORY Final Result [facility] [address] [address], [place] [phone] from Last 3 Months or Most Recently Relevant to Health [place] [address]
--- OUTSIDE RECORDS SUMMARY | 2025-07-15 01:48 | XMS_ITS | Encounter Summary ---
Author Organization [facility] Address [address] [place] [address] Care Team Providers Care Cardio Clinician Name Role Phone John Russ MD Primary Care Provider [phone] Encounter Details Date Type Department Care Team (Late st Contact Info) Description 09/04/2021 Lab Requisition [facility] [address] [facility] [facility] [place] [id number] Noel Gomez MD [address] [place] [address] Social History Tobacco Use Types Packs/Day Years Used Date Smoking Tobacco: Never Smokeless Tobacco: Never Comments No Sex and Gender Information Value Date Recorded Sex Assigned at Not on file Legal Sex Female 6:28 AM CROWN PERFORATOR OPERATOR Gender Identity Not on file Sexual Orientation Not on file documented as of this encounter Plan of Treatment Not on file documented as of this encounter Procedures Procedure Name Priority Date/Time Associated Diagnosis Comments DERMATOPATHOLOGY Routine 09/02/2021 12:0 0 AM CROWN PERFORATOR OPERATOR documented in this encounter Results * DERMATOPATHOLOGY (09/02/2021 12:00 AM CROWN PERFORATOR OPERATOR) Case Report Dermatopathology Report Case: [id number] Authorizing Provider: Noel Gomez MD Collected: 09/02/2021 12:00 AM Ordering Location: [facility] Received: 09/04/2021 07:43 AM Pathologist: Italia Alcantar MD Specimen: Skin, left lat foot 3:45 PM CROWN PERFORATOR OPERATOR DERMATOPATHOLOGY LABORATORY Final Diagnosis Specimen A. SKIN, left lat foot: COMPOUND MELANOCYTIC NEVUS, OF ACRAL SKIN (D22.72) 3:45 PM [facility] DERMATOPATH[facility]Y [facility]ORATORY at 1545 CROWN PERFORATOR OPERATOR Clinical History Nevus vs MM. Path# [id number] 3:45 PM [facility] Gross Description Specimen A: Received is one formalin filled container labeled with the patient's name and designated left lat foot. The specimen consists of a shave biopsy measuring [id number]. Jar 0. 3:45 PM [facility] DERMATOPATH[facility]Y [facility]OR[facility]ORY Microscopic Description Specimen A. SKIN, left lat foot: Sections show acral type skin with collections of melanocytes at the dermal-epidermal junction that are forming fairly well defined th ques. Melanocytes are also present in the upper dermis. 3:45 PM [facility] DERMATOPATH[facility]OR[facility] Disclaimer An external and internal positive and negative controls are appropriate for the histochemical, immunohistochemical and immunofluorescence stain(s) in this case (if any), except where stated explicitly. The performance characteristics of the stain(s) cited in this report were developed and its performance characteristic determined by the Dermatopathology Laboratory at [facility], directed by Dr. Ginette Cox. These tests need not be, and therefore are not, approved by the [place] Food and Drug Administration. The tests are used for clinical purposes. Billing Codes Specimen Charges Stain Charges 41537 1 3:45 PM CROWN PERFORATOR OPERATOR DERMATOPATHOLOGY LABORATORY Embedded Images 3:45 PM [facility] DERMATOPATH[facility]OR[facility]ORY Pathology/Cytolog y TISSUE SPECIMEN FROM SKIN / Unknown 09/02/2021 09/04/2021 7:43 AM CROWN PERFORATOR OPERATOR us Noel Gomez MD LAB - PATHOLOGY/CYTOLOGY ORDER DAJUAN Final Result DERMATOPATHOLOGY LABORATORY [facility] - Department of Dermatology [address] [place] [address], [facility] [phone] documented in this encounter Visit Diagnoses Not on filedocumented in this encounter Care Teams Cardio Clinician Relationship Specialty Start Date End Date John Russ MD [address] [place] [id number] PCP - General 04/07/21 documented as of this encounter
--- OUTSIDE RECORDS SUMMARY | 2025-07-15 01:48 | XMS_ITS | Encounter Summary ---
Author Organization [facility] Address [facility] [place] [address] Care Team Providers Care Shop Clerk Name Role Phone Magda Patel MD Primary Care Provider [phone] Miguel Pagan MD Primary Care Provid er None, Provider Primary Care Provider Natalya Cortes MD Primary Care Provider + Encounter Details Date Type Department Care Team (Latest Contact Info) Description 08/29/2018 Abstract [facility] Deja Quesada MD Social History Tobacco Use Types Packs/Day Years Used Date Smoking Tobacco: Never Assessed Comments Unknown Sex and Gender Information Value Date Recorded Sex Assigned at Not on file Legal Sex Female 9:10 PM CDT Gender Identity Female 11/10/2021 7:37 AM 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 Sexual Orientation Straight 11/10/2021 7: 37 AM 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 documented as of this encounter Plan of Treatment Not on file documented as of this encounter Visit Diagnoses Not on filedocumented in this encounter Care Teams Shop Clerk Relationship Specialty Start Date End Date Magda Patel MD PCP - General INTERNAL MEDICINE 07/07/20 01/27/23 Miguel Pagan MD PCP - General Neurology Psychiatry 05/31/23 10/04/23 None, Provider, PCP - General UNKNOWN PHYSICIAN SPECIALTY 10/05/23 Natalya Bunn MD [address] [place] [id number] PCP - General FAMILY PRACTICE 05/07/24 07/16/24 documented as of this encounter
--- OUTSIDE RECORDS SUMMARY | 2025-07-15 01:48 | XMS_ITS | Encounter Summary ---
Author Organization [facility] Address [address] [place] [id number] Care Team Providers Care Commercial Real Estate Sales Manager Name Role Phone Miguel Pagan MD Primary Care Provid er None, Provider Primary Care Provider Natalya Cortes MD Primary Care Provider + Encounter Details Date Type Department Care Team (Late st Contact Info) Description 03/02/2023 Via [employer]ron[employer] Message Enc [facility] Family & Internal Medicine [address] [phone] [facility], [facility] Provider appt Social History Tobacco Use Types [...] CDT Gender Identity Female 11/10/2021 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 No / Unsure 03/01/2023 1:03 PM CDT documented as of this encounter Plan of Treatment Not on file documented as of this encounter Visit Diagnoses Not on filedocumented in this encounter Additional Health Concerns Assessment Noted Time PHQ-9 Depression Total Score: 1 01/18/20 23 10:12 AM CDT documented as of this encounter Care Teams Commercial Real Estate Sales Manager Relationship Specialty Start Date End Date Miguel Pagan MD PCP - General Neurology Psychiatry 05/31/23 10/04/23 None, Provider, PCP - General UNKNOWN PHYSICIAN SPECIALTY 10/05/23 Natalya Bunn MD [address] [address] PCP - General FAMILY PRACTICE 05/07/24 07/16/24 documented as of this encounter
--- OUTSIDE RECORDS SUMMARY | 2025-07-15 01:48 | XMS_ITS | Clinical Summary ---
Author Organization [facility] Address [address] [place] [address] Care Team Providers Care Retail Tire Sales Manager Name Role Phone Nicole Bhakta MD Unavailable [phone] Radha Bustos NP Primary Care Provider [phone] Allergies Active Allergy Reactions Criticality Noted Date Comments Amoxicillin Vomiting,Nausea And Vomiting,Unknown 08/30/2013 Reaction: Vomiting, Erythromycin Vomiting,Nausea And Vomiting,Unknown 08/30/2013 Reaction: Vomiting, Medications naltrexone (LOW DOSE) 4.5 mg capsule Active Lactobacillus rhamnosus GG 20 billion cell capsule Take by mouth Active acetaminophen (TYLENOL) 500 mg tablet Active eletriptan (RELPAX) 20 mg tabletIndications :Migraine Take 1 tablet (20 mg total) by mouth once as needed for migraine May repeat once after 2 hours. 18 tablet 1 5 11/22/19 26 Active hyoscyamine ER (LEVBID) 0.375 mg 12 hr tabletIndications :diarrhea Take 1 tablet (0.375 mg total) by mouth every 12 (twelve) hours as needed for cramping 60 tablet 3 5 Active betamethasone dipropionate (DIPROSONE) 0.05 % ointment Apply topically 2 (two) times a day as needed for irritation or rash 45 g 4 5 Active atogepant (Qulipta) 60 mg tablet Take 1 tablet by mouth daily 90 tablet 1 5 Active oxymetazoline 1 % cream With hyaluronic acid topically 5 Active ergocalciferol (VITAMIN D) 50,000 unit capsule Take 1 capsule (50,000 Units total) by mouth once a week 12 capsule 5 06/11/20 26 Active ubrogepant (UBRELVY) 100 mg tabletIndications :Intractable chronic migraine without aura and without status migrainosus Take 1 tablet (100 mg total) by mouth once as needed for migraine May repeat dose once in 2 hours if no relief. Do not exceed 2 doses in 24 hours. 10 tablet 11 5 06/11/20 26 Active Active Problems Problem Noted Date Diagnosed Date Annual physical exam 08/22/2024 Assessment & Plan (11/22/2024 10:31 AM GUEST EXPERIENCE CAPTAIN): -Recommended: Healthy diet. Avoiding junk food/fast food. -30 minutes of exercise most days of the week. Increase to 45 minutes for weight loss. Immunizations: Recommended Influenza increase physical activity, continue present diet with no restrictions, continue present plan, routine labs ordered Follow up in 6 months Assessment & Plan (08/22/2024 2:48 PM CDT): -Recommended: Healthy diet. Avoiding junk food/fast food. -30 minutes of exercise most days of the week. Increase to 45 minutes for weight loss. Immunizations: Recommended Influenza increase physical activity, continue present diet with no restrictions, continue present plan, routine labs ordered Follow-up in 3 months for migrains. Bloating 08/22/2024 Irritable bowel syndrome with diarrhea Assessment & Plan (05/22/2025 11:09 AM CDT): Arthralgia of both hands 08/22/2024 Assessment & Plan (08/22/2024 2:47 PM CDT): Worsening joint pain in both hands. Referral to [facility]ology. Need for immunization against influenza 08/22/20 24 Intractable chronic migraine without aura and without status migrainosus 03/01/2023 Assessment & Plan (05/22/2025 11:09 AM CDT): Assessment & Plan (11/22/2024 10:32 AM GUEST EXPERIENCE CAPTAIN): Much improved with quilipta. She wants something on hand for breakthrough migraines. Will try eletriptan 20 mg p.r.n.. Assessment & Plan (08/22/2024 2:46 PM CDT): Uncontrolled. No longer seeing old neurologist. Taking ubrelvy PRN. Does not work well for her. She has tried many medications, botox, dry needling, infusions. Quilipta worked well in the past, but insurance would cover. Order Quilipta and prior authorization. Referral to neurology. Follow up in 3 months. Fibroadenoma of right breast 03/11/2021 Spider angioma 01/31/2017 Assessment & Plan (05/22/2025 11:09 AM CDT): Environmental allergies 10/11/2016 Low vitamin D level 07/06/2016 Assessment & Plan (05/22/2025 11:02 AM CDT): Orders: Vitamin D 25 hydroxy; Future Muscle tremor 09/17/2015 Premenstrual dysphoric disorder 12/20/2013 Irritable bowel syndrome 08/30/2013 Assessment & Plan (11/22/2024 10:21 AM GUEST EXPERIENCE CAPTAIN): Will try levbid er bid prn for cramping/ bloating and diarrhea symptoms. She is afraid to even go out to eat due to symptoms. Assessment & Plan (08/22/2024 2:40 PM CDT): Worsening. Chronic diarrhea since January. Removed gluten and dairy from diet which seems to somewhat help but problems have continues. Referral to GI for evaluation. 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 Does well with low dose naltrexone. Orders: CBC with auto differential; Future Comprehensive metabolic panel; Future Resolved Problems Problem Noted Date Diagnosed Date Resolved Date Breast mass 05/09/2019 08/22/2024 Abnormal findings on diagnos tic imaging of breast 05/09/2019 08/22/2024 Acute bronchitis 12/26/2017 08/22/2024 Cough 12/26/2017 08/22/2024 Acute conjunctivitis 10/11/2016 024 Dysmenorrhea 09/27/2013 08/22/2024 Common migraine without aura 08/30/2013 05/22/2025 Fatigue 08/30/2013 08/22/2024 Gluten enteropathy 08/30/2013 Headache 08/30/2013 08/22/2024 Pain in joint 08/30/2013 08/22/2024 Encounters Date Type Department Care Team Description 06/20/2025 Results Follow-Up [facility] ([facility]) - [facility] Minimally Invasive Surgery [facility] 12th Floor, [place] [address] Abdomen Pelvis WO Contrast 06/20/2025 Telephone [facility] ([facility]) - [facility] Minimally Invasive Surgery [address]th [address], [place] [address] Iam Mae MD Scheduling Appointments 06/14/2025 7:19 AM CDT - 06/14/2025 11:59 PM CDT Hospital Encounter [facility] [address] [place] [phone] Iam Mae MD Diastasis recti; Umbilical hernia without obstruction and without gangrene Discharge Disposition: Discharge to home or self care 06/12/[address] [facility] General Neurology [address] 6th [address] [place] [id number] Bre Patel PA Ubrelvy PA 06/11/2025 2:00 PM CDT Office Visit [facility] General Neurology [address] [place] [address] Bre Patel PA Intractable chronic migraine without aura and without status migrainosus (Primary Dx) 06/11/2025 Results Follow-Up [facility] Primary Care at [address] [phone] Radha Bustos NP CBC with auto differential, Comprehensive metabolic panel, Lipid panel, Additional followed-up results: 2 06/07/2025 11:00 AM CDT Office Visit [facility] ([facility]) - [facility] Minimally Invasive Surgery [address]th [address], [place] [address] Iam Mae MD Umbilical hernia without obstruction and without gangrene (Primary Dx); Diastasis recti 05/22/2025 10:30 AM CDT Office Visit [facility] Primary Care at [address] [phone] Radha Bustos NP Low vitamin D level (Primary Dx); Jesús-Danlos syndrome, type 3; Lipid screening; Thyroid disorder screen; Perimenopause; Irritable bowel syndrome with diarrhea; Chronic migraine without aura without status migrainosus, not intractable; Spider angioma 05/02/[address] [facility] Scheduling [address] [place] [address] Destiny Murray 04/25/2025 Results Follow-Up [facility] Primary Care at [address] [phone] Radha Bustos NP US Vein Duplex Lower Extremity Bilateral Complete 04/22/2025 3:00 PM CDT Ancillary Procedure [facility] Vascular and Vein Surgery at [address] [place] [phone] Venous insufficiency 04/22/2025 Telephone [facility] Vascular and Vein Surgery at [address] [place] [phone] Marianna Messer 04/22/2025 Orders Only [facility] Primary Care at [address] [phone] Radha Bustos NP Venous insufficiency (Primary Dx) 04/22/2025 Results Follow-Up [facility] Primary Care at [address] [phone] Radha Bustos NP US Arterial Doppler Lower Extremity Bilateral 04/19/2025 3:00 PM CDT Ancillary Procedure [facility] Cardiology at [address] [phone] Murmur, cardiac; Family history of aortic aneurysm 04/18/2025 11:00 AM CDT Ancillary Procedure [facility] Vascular and Vein Surgery at [address] [phone] Pain in right leg 04/17/2025 Telephone [facility] Vascular and Vein Surgery at [address] [phone] Marianna Messer 04/16/2025 3:30 PM CDT Office Visit [facility] Primary Care at [address] [phone] Radha Bustos NP Pain in right leg (Primary Dx); Murmur, cardiac; Family history of aortic aneurysm 04/15/2025 Nurse Triage [facility] Primary Care at [address] [phone] Radha Bustos NP from Last 3 Months Immunizations Immunization Administration Dates Next Due Influenza, Quadrivalent, Spl it, Preservative Free, Intramuscular 07/07/2020 Influenza, Trivalent, IM (MDV) 10/30/2012 Tdap 07/27/2021 Surgical History Surgery Date Site/Laterality Comments REDUCTION MAMMAPLASTY 10/24/2000 - 10/23/2001 TONSILLECTOMY 10/24/1990 - 10/23/1991 FOREARM SURGERY 10/24/1991 - 10/23/1992 APPENDECTOMY 10/24/1998 - 10/23/1999 BREAST BIOPSY 05/23/2019 Right FRACTURE SURGERY 1991 Medical History Medical History Date Comments Migraine Jesús-Danlos syndrome Arthritis Menstrual problem Heart murmur Irritable bowel syndrome Chronic diarrhea Family History Medical History Relation Name Comments COPD Father Myles Hearing loss Father Myles Memory loss Father Myles Stroke Father Myles Aortic aneurysm Maternal Grandfather Breast cancer Maternal Grandmother Susan Cancer Maternal Grandmother Susan Aortic aneurysm Mother Dori Family histo ry of aortic aneurysm - (Added by TW Conv) Colon polyps Mother Dori Hypertension Mother Dori Jesús-Danlos syndrome Other Migraines Other Alzheimer's disease Paternal Grandfather Bennie Cancer Paternal Grandmother Laveeta Stomach cancer Paternal Grandmother Laveeta Relation Name Status Comments Father Myles Maternal Grandfather Maternal Grandmother Susan Mother Dori Other Paternal Grandfather Bennie Paternal Grandmother Laveeta Social History Tobacco Use Types Packs/Day Years Used Date Smoking Tobacco: Never Smokeless Tobacco: Never Tobacco Cessation:Counseling Given: Not Answered AUDIT-C Answer Date Recorded Q1: How often [...] on file Legal Sex Female 1:40 AM GUEST EXPERIENCE CAPTAIN Gender Identity Female 03/09/2021 1:15 PM CDT Sexual Orientation Not on file Obstetrics History Last Filed Vital Signs Vital Sign Reading Time Taken Comments Blood Pressure 107/66 06/11/2025 1:44 PM CDT Pulse 82 06/11/2025 1:44 PM CDT Temperature 36.5 C (97.7 F) 06/11/2025 1:44 PM CDT Respiratory Rate 16 05/22/2025 10:33 AM CDT Oxygen Saturation 99% 06/11/2025 1:44 PM CDT Inhaled Oxygen Concentration - - Weight 53.3 kg (117 lb 8 oz) 06/11/2025 1:44 PM CDT Height 165.1 cm (5' 5) 06/11/2025 1:44 PM CDT Body Mass Index 19.55 06/11/2025 1:44 PM CDT Plan of Treatment Health Maintenance Due Date Last Done Comments Hepatitis C Screening 1980 Varicella Vaccines (1 of 2 - 13+ 2-dose series) 1993 Hepatitis B Screening 1998 HPV Vaccines (1 - 3-dose SCD M series) 2007 Influenza Vaccine (#1) 2025 , 10/30/2012 Breast Cancer Screening-Mammogram 07/30/2025 07/30/2024, 07/27/2023, 05/06/2022 Cervical Cancer Screening 08/27/2025 08/27/2024 Regular Well Visit/Exam 18-64 11/22/2025 11/22/2024 Depression Screening 05/22/2026 05/22/2025, 04/16/2025, 08/22/2024 DTaP/Tdap/Td Vaccine (2 - Td or Tdap) 07/27/2031 07/27/2021 Colon Cancer Screening-Colonoscopy 11/06/2034 11/06/2024 Pneumococcal vaccine <65 Aged Out No longer eligible based on patient's age to complete this topic Procedures Procedure Name Priority Date/Time Associated Diagnosis Comments CT ABDOMEN PELVIS WO CONTRAST Schedule Routine, Read Routine (OP Routine) 06/14/2025 7:59 AM CDT Diastasis recti Umbilical hernia without obstruction and without gangrene VITAMIN D 25 HYDROXY Routine 06/05/2025 9:13 AM CDT Low vitamin D level THYROID FUNCTION CASCADE Routine 06/05/2025 9:13 AM CDT Thyroid disorder screen LIPID PANEL Routine 06/05/2025 9:13 AM CDT Lipid screening COMPREHENSIVE METABOLIC PANEL Routine 06/05/2025 9:13 AM CDT Jesús-Danlos syndrome, type 3 CBC WITH AUTO DIFFERENTIAL Routine 06/05/2025 9:13 AM CDT Jesús-Danlos syndrome, type 3 US VEIN DUPLEX LOWER EXTREMITY BILATERAL COMPLETE Schedule Routine, Read Routine (OP Routine) 04/22/2025 3:25 PM CDT Venous insufficiency TRANSTHORACIC ECHO (TTE) COMPLETE W DOPPLER/CF WO CONTRAST Routine 04/19/2025 3:29 PM CDT Murmur, cardiac Family history of aortic aneurysm US ARTERIAL DOPPLER LOWER EXTREMITY BILATERAL Schedule Routine, Read Routine (OP Routine) 04/18/2025 11:29 AM CDT Pain in right leg COLONOSCOPY 11/06/2024 11:36 AM GUEST EXPERIENCE CAPTAIN HM PAP SMEAR Routine 08/27/2024 8:54 AM GUEST EXPERIENCE CAPTAIN SCREENING MAMMOGRAM BILATERAL W ELIEL Schedule Routine, Read Routine (OP Routine) 07/30/2024 10:41 AM CDT Screening mammogram, encounter for from Last 3 Months or Most Recently Relevant to Health Maintenance Results * CT Abdomen Pelvis WO Contrast (06/14/2025 7:59 AM CDT) Anatomical Region Laterality Modality Body N/A Computed Tomogra phy 06/14/2025 9:53 AM CDT Impressions 06/14/2025 1:45 PM CDT Diastases recti with an additional fat containing umbilical hernia. No evidence of bowel obstruction. Dictated by: Amrit Kimball MD The radiology attending physician has personally reviewed this study, and had reviewed and/or edited this written report and agrees with it. Electronically signed by: Sandra Bhatia M.D. Narrative 06/14/2025 1:45 PM CDT EXAMINATION: Computed tomography of the abdomen and pelvis without intravenous contrast HISTORY: Abdominal hernia TECHNIQUE: Transaxial computed tomographic images of the abdomen and pelvis were obtained without intravenous contrast according to the standard protocol. COMPARISON: None FINDINGS: Lung bases are clear. Tiny pericardial effusion. Liver, gallbladder, biliary ducts, spleen, adrenal glands, kidneys, pancreas are normal. The urinary bladder is normal. Uterus is identified. No adnexal lesions. There is a ventral abdominal wall hernia inferior to the umbilicus measuring approximately 9 mm in craniocaudal dimension and 1.7 cm in transverse dimension containing fat. There is also diastases recti measuring approximately 4.9 cm in transverse dimension. No bowel loops are noted within the hernia. Stomach and bowel loops are normal in caliber otherwise. No free intraperitoneal air or fluid. There is no abdominal or pelvic lymphadenopathy. Osseous structures are normal. Procedure Note Sandra Bhatia MD - 06/14/2025 EXAMINATION: Computed tomography of the abdomen and pelvis without intravenous contrast HISTORY: Abdominal hernia TECHNIQUE: Transaxial computed tomographic images of the abdomen and pelvis were obtained without intravenous contrast according to the standard protocol. COMPARISON: None FINDINGS: Lung bases are clear. Tiny pericardial effusion. Liver, gallbladder, biliary ducts, spleen, adrenal glands, kidneys, pancreas are normal. The urinary bladder is normal. Uterus is identified. No adnexal lesions. There is a ventral abdominal wall hernia inferior to the umbilicus measuring approximately 9 mm in craniocaudal dimension and 1.7 cm in transverse dimension containing fat. There is also diastases recti measuring approximately 4.9 cm in transverse dimension. No bowel loops are noted within the hernia. Stomach and bowel loops are normal in caliber otherwise. No free intraperitoneal air or fluid. There is no abdominal or pelvic lymphadenopathy. Osseous structures are normal. IMPRESSION: Diastases recti with an additional fat containing umbilical hernia. No evidence of bowel obstruction. Dictated by: Amrit Kimball MD The radiology attending physician has personally reviewed this study, and had reviewed and/or edited this written report and agrees with it. Electronically signed by: Sandra Bhatia M.D. Iam Mae MD IM CT PROCEDURES Final Result * Thyroid Function [place] (06/05/2025 9:13 AM CDT) TSH 2.330 0.450 - 4.500 uIU/mL [facility] - 01 Comment: No apparent thyroid disorder. Additional testing not indicated. In rare instances, Secondary Hypothyroidism as well as Subclinical Hypothyroidism have been reported in some patients with normal TSH values. Blood 06/05/2025 9:13 AM CDT 06/05/2025 Narrative [facility] - 06/06/2025 2:08 AM CDT Performed at: [address] [place] [id number] Lead Software Architect: Jorge Hare PhD, Phone: [phone] Radha Bustos NP LAB BLOOD ORDERABLES Final Re sult [facility] * (ABNORMAL) CBC with auto differential (06/05/2025 9:13 AM CDT) WBC 6.8 3.4 - 10.8 x10E3/uL [facility] - 01 RBC 4.03 3.77 - 5.28 x10E6/uL [facility] - 01 Hgb 12.9 11.1 - 15.9 g/dL [facility] - 01 Hct 40.1 34.0 - 46.6 % [facility] - 01 MCV 100(H) 79 - 97 fL [facility] - 01 MCH 32.0 26.6 - 33.0 pg [facility] - 01 MCHC 32.2 31.5 - 35.7 g/dL [facility] - 01 Rdw 12.1 11.7 - 15.4 % [facility] - 01 Platelets 330 150 - 450 x10E3/uL [facility] - 01 Neutrophils pct 57 Not Estab. % [facility] - 01 Lymphs pct 31 Not Estab. % [facility] - 01 Monocytes pct 7 Not Estab. % [facility] - 01 Eosinophils pct 4 Not Estab. % [facility] - 01 Basophil pct 1 Not Estab. % [facility] - 01 Neutrophil abs 3.9 1.4 - 7.0 x10E3/uL [facility] - 01 Lymphs (Absolute) 2.1 0.7 - 3.1 x10E3/uL [facility] - 01 Monocyte abs 0.5 0.1 - 0.9 x10E3/uL [facility] - 01 Eosinophils, abs 0.2 0.0 - 0.4 x10E3/uL [facility] - 01 Basophils, abs 0.1 0.0 - 0.2 x10E3/uL [facility] - 01 Immature Granulocytes 0 Not Estab. % [facility] - 01 Immature Grans (Abs) 0.0 0.0 - 0.1 x10E3/uL [facility] - 01 Blood 06/05/2025 9:13 AM CDT 06/05/2025 Narrative [facility] - 06/05/2025 11:08 PM CDT Performed at: [address] [place] [id number] Lead Software Architect: Jorge Hare PhD, Phone: [phone] Radha Bustos FUEL CELL ENGINEER LAB BLOOD ORDERABLES Final Re sult Performing Organization Address [facility] de Phone Number [facility] * (ABNORMAL) Vitamin D 25 hydroxy (06/05/2025 9:13 AM CDT) [facility] Vitamin D, 25-Hydroxy 24.4(L) 30.0 - 100.0 ng/mL [facility] - 01 Comment: Vitamin D deficiency has been defined by the [place] of Medicine and an Endocrine Society practice guideline as a level of serum 25-OH vitamin D less than 20 ng/mL (1,2). The Endocrine Society went on to further define vitamin D insufficiency as a level between 21 and 29 ng/mL (2). 1. IOM ([place] of Medicine). 2010. Dietary reference intakes for calcium and D. [place]: The National Academies Press. 2. Tor MF, Grant [place], Cameron MACIAS, et al. Evaluation, treatment, and prevention of vitamin D deficiency: an Endocrine Society clinical practice guideline. JCEM. 2010; 96(7):1911-30. Blood 06/05/2025 9:13 AM CDT 06/05/2025 Narrative [facility] - 06/06/2025 7:09 AM CDT Performed at: [address] [place] [id number] Lead Software Architect: Jorge Hare PhD, Phone: [phone] Radha Bustos FUEL CELL ENGINEER LAB BLOOD ORDERABLES Final Re sult Performing Organization Address [facility] de Phone Number [facility] * (ABNORMAL) Lipid panel (06/05/2025 9:13 AM CDT) Cholesterol 175 100 - 199 mg/dL [facility] - 01 Triglycerides 64 0 - 149 mg/dL [facility] - 01 HDL Cholesterol 48 >39 mg/dL [facility] - 01 VLDL 12 5 - 40 mg/dL [facility] - 01 LDL, calculated 115(H) 0 - 99 mg/dL [facility] - 01 Blood 06/05/2025 9:13 AM CDT 06/05/2025 Narrative [facility] - 06/06/2025 2:08 AM CDT Performed at: [address] [place] [id number] Lead Software Architect: Jorge Hare PhD, Phone: [phone] Radha Bustos NP LAB BLOOD ORDERABLES Final Re sul Performing Organization Address [facility] de Phone Number [facility] - * Comprehensive metabolic panel (06/05/2025 9:13 AM CDT) Glucose 88 70 - 99 mg/dL [facility] - 01 BUN 15 6 - 24 mg/dL [facility] - 01 Creatinine, Serum 0.78 0.57 - 1.00 mg/dL [facility] - 01 eGFR 95 >59 mL/min/1.73 [facility] - 01 BUN/creat ratio 19 9 - 23 [facility] - 01 Sodium 141 134 - 144 mmol/L [facility] - 01 Potassium, sr 4.6 3.5 - 5.2 mmol/L [facility] - 01 Chloride 103 96 - 106 mmol/L [facility] - 01 CO2 22 20 - 29 mmol/L [facility] - 01 Calcium 9.8 8.7 - 10.2 mg/dL [facility] - 01 Protein, sr 6.8 6.0 - 8.5 g/dL [facility] - 01 Albumin 4.5 3.9 - 4.9 g/dL [facility] - 01 Globulin, Total 2.3 1.5 - 4.5 g/dL [facility] - 01 Bilirubin, Total 0.6 0.0 - 1.2 mg/dL [facility] - 01 Alk phos 56 44 - 121 IU/L [facility] - 01 AST 17 0 - 40 IU/L [facility] - 01 ALT 9 0 - 32 IU/L [facility] - 01 Blood 06/05/2025 9:13 AM CDT 06/05/2025 Narrative [facility] - 06/06/2025 2:08 AM CDT Performed at: - [facility] [address] [id number] Lead Software Architect: Jorge Hare PhD, Phone: [phone] us Radha Bustos NP LAB BLOOD ORDERABLES Final Re sult [facility] - 01 * US Vein Duplex Lower Extremity Bilateral Complete (04/22/2025 3:25 PM CDT) Anatomical Region Laterality Modality Vascular Bilateral Ultrasound 04/22/2025 3:00 PM CDT Narrative 04/25/2025 8:40 AM CDT Vascular & Vein Surgery [address] [place] [id number] Lower Extremity Venous Report Patient Name: DAIN DECKER R : 1980 (45y ) Gender: F Study Date: 04/22/2025 03:00:15 PM Sales And Marketing Agent: MALCOLM Location: [facility] Order Provider: RADHA BUSTOS Quality: Adequate Ref Provider: RADHA BUSTOS PROCEDURES: Vascular Report: A non-invasive vascular imaging study of the bilateral lower extremity veins was performed using B-mode ultrasound, color flow, and spectral Doppler. INDICATIONS: RLE rash intermittent x 3 months. HISTORY: No PMH. COMPARISONS: No previous exams. FINDINGS: Right: Negative for deep and superficial vein thrombosis in the right lower extremity. Normal compressibility and color filling, spontaneous and phasic flow, and response to distal augmentation is demonstrated in the right common femoral vein, saphenofemoral junction, proximal femoral vein, mid femoral vein, distal femoral vein, profunda vein, popliteal vein, posterior tibial veins, peroneal veins, gastrocnemius veins and soleal veins. Left: Negative for deep and superficial vein thrombosis in the left lower extremity. Normal compressibility and color filling, spontaneous and phasic flow, and response to distal augmentation is demonstrated in the left common femoral vein, saphenofemoral junction, proximal femoral vein, mid femoral vein, distal femoral vein, profunda vein, popliteal vein, posterior tibial veins, peroneal veins, gastrocnemius veins and soleal veins. CONCLUSIONS: 1. There is no evidence of deep vein thrombosis in the lower extremities bilaterally. ATTESTATION: I have reviewed and interpreted the pertinent images and measurements of this study. I attest to the conclusions in the final report that is provided above. Electronically Signed By: Jacob Disla MD 04/25/2025 7:47:21 AM CDT Procedure Note Jacob Disla MD - 04/25/2025 Vascular & Vein Surgery [address] [place] [address]. [place] [address] Lower Extremity Venous Report Patient Name: DAIN DECKER R : 1980 (45y ) Gender: F Study Date: 04/22/2025 03:00:15 PM Sales And Marketing Agent: MALCOLM Location: [facility] Order Provider: RADHA BUSTOS Quality: Adequate Ref Provider: RADHA BUSTOS PROCEDURES: Vascular Report: A non-invasive vascular imaging study of the bilaterallower extremity veins was performed using B-mode ultrasound, color flow, and spectralDoppler. INDICATIONS: RLE rash intermittent x 3 months. HISTORY: No PMH. COMPARISONS: No previous exams. FINDINGS: Right: Negative for deep and superficial vein thrombosis in the rightlower extremity. Normal compressibility and color filling, spontaneous and phasic flow, andresponse to distal augmentation is demonstrated in the right common femoral vein,saphenofemoral junction, proximal femoral vein, mid femoral vein, distal femoral vein,profunda vein, popliteal vein, posterior tibial veins, peroneal veins, gastrocnemiusveins and soleal veins. Left: Negative for deep and superficial vein thrombosis in the left lowerextremity. Normal compressibility and color filling, spontaneous and phasic flow, andresponse to distal augmentation is demonstrated in the left common femoral vein,saphenofemoral junction, proximal femoral vein, mid femoral vein, distal femoral vein,profunda vein, popliteal vein, posterior tibial veins, peroneal veins, gastrocnemiusveins and soleal veins. CONCLUSIONS: 1. There is no evidence of deep vein thrombosis in the lower extremitiesbilaterally. ATTESTATION: I have reviewed and interpreted the pertinent images and measurements ofthis study. I attest to the conclusions in the final report that is provided above. Electronically Signed By: Jacob Disla MD 04/25/2025 7:47:21 AM CDT Radha Bustos FUEL CELL ENGINEER IMG US PROCEDURES Final Resul t * TRANSTHORACIC ECHO (TTE) COMPLETE W DOPPLER/CF WO CONTRAST (04/19/2025 3:29 PM CDT) Estimated EF 65-70 % CONS SCIMAGE EF Mod BP 69 % CONS SCIMAGE Anatomical Region Laterality Modality Ultrasound 04/19/2025 3:08 PM CDT Narrative 04/19/2025 4:09 PM CDT [facility] Cardiology [address], [address], [place] [address] P:[phone] P:[phone] Echocardiographic Report Patient Name: DAIN DECKER R : 1980 Study Date: 04/19/2025 3:08:39 PM Gender: F Sales And Marketing Agent: WILL Location: [facility] Ref Provider: RADHA BUSTOS Height(Cm): 165 BSA: 1.57 Weight(Kg): 53.5 Heart Rate: 81 BP: 102 / 58 Quality: Good Order Provider: RADHA BUSTOS PROCEDURES: Echocardiographic Report: Transthoracic echocardiogram with complete 2D, M-Mode, and color Doppler examination. With Strain Analysis. INDICATIONS: Family History of Aortic Aneurysm and R01.1 Cardiac murmur, unspecified. MEASUREMENTS: 2D/MM Value Range Doppler Value Range EF Mod BP 69 % [ 54 - 74 ] AV Mean PG 5 mmHg EF Teich MM 61 % [ 54 - 74 ] AV Peak Paras 1.45 m/s [ 1.00 - 1.70 ] Estimated EF 65-70 % AV Peak PG 8 mmHg LVIDd 2D 4.41 cm [ 3.80 - 5.20 ] AV VTI 31.92 cm LVIDd MM 4.76 cm [ 3.80 - 5.20 ] LVOT Peak Paras 1.24 m/s [ 0.70 - 1.10 ] LVIDs 2D 2.51 cm [ 2.20 - 3.50 ] LVOT VTI 22.88 cm LVIDs MM 3.22 cm [ 2.20 - 3.50 ] MV E Peak Paras 0.91 m/s [ 0.60 - 1.30 ] LVPWd 2D 0.66 cm [ 0.60 - 0.90 ] MV A Peak Paras 0.74 m/s [ 1.00 - 1.20 ] LVPWd MM 0.63 cm [ 0.60 - 0.90 ] MV Decel Time 198 msec [ 104 - 258 ] IVSd 2D 0.56 cm [ 0.60 - 0.90 ] PV Peak Paras 1.13 m/s [ 0.40 - 0.80 ] IVSd MM 0.58 cm [ 0.60 - 0.90 ] TR Peak Paras 2.40 m/s [ 1.00 - 2.80 ] LA Dimension MM 2.72 cm [ 2.70 - 3.80 ] TR Peak PG 23 mmHg AoR Diam MM 2.53 cm [ 2.70 - 3.70 ] RVSP 33.00 mmHg [ 10.00 - 36.00 ] LA Volume Index 16 cc/m2 [ 16 - 34 ] Lateral E` 0.15 m/s [ 0.10 - 0.15 ] E/E` 6 2D/MM Value Range Doppler Value Range - FINDINGS: Interpretation Site: Exam was interpreted at [facility]. Left Ventricle: Normal left ventricular systolic function. No focal wall motion abnormalities. Normal left ventricular size. Normal left ventricular wall thickness. Normal left ventricular diastolic function. Ejection fraction is measured at 69 %. Ejection Fraction is visually estimated to be 65-70 %. Global Longitudinal Strain is -19 %. GLS is normal. Right Ventricle: Normal right ventricular size. Normal right ventricular systolic function. Left Atrium: The left atrium is normal in size. Right Atrium: The right atrium is normal in size. Atrial Septum: Normal atrial septum. Mitral Valve: Normal appearance of the mitral valve. Mild mitral valve regurgitation. There is no hemodynamically significant mitral stenosis by Doppler. Aortic Valve: No evidence of hemodynamically significant aortic stenosis by Doppler. Aortic cusps appear mildly sclerotic. Trileaflet aortic valve. Trace aortic valve regurgitation. Tricuspid Valve: Normal appearance of the tricuspid valve. Normal right ventricular systolic pressure. Estimated peak RVSP is 33 mmHg. Mild tricuspid regurgitation. Pulmonic Valve: Normal appearance of the pulmonic valve. No pulmonic stenosis. Mild pulmonic regurgitation. Pericardium: Small pericardial effusion. Aorta: Normal aortic root. IVC: Normal size and no respiratory collapse consistent with elevated right atrial pressure (5-10 mmHg). CONCLUSIONS: Normal left ventricular systolic function. No focal wall motion abnormalities. Normal left ventricular size. Normal left ventricular wall thickness. Normal left ventricular diastolic function. Ejection fraction is measured at 69 %. Ejection Fraction is visually estimated to be 65-70 %. Global Longitudinal Strain is -19 %. GLS is normal. Mild mitral valve regurgitation. Mild tricuspid regurgitation. Mild pulmonic regurgitation. Small pericardial effusion. Normal sinus rhythm. Electronically Signed By: Donaldo Peterson MD 04/19/2025 4:09:26 PM CDT Procedure Note Donaldo Peterson MD - 04/19/2025 [facility] Medical [facility] Cardiology [address], [address] [address] P:[phone] P:[phone] Echocardiographic Report Patient Name: DAIN DECKER R : 1980 Study Date: 04/19/2025 3:08:39 PM Gender: F Sales And Marketing Agent: Location: [facility] Ref Provider: RADHA BUSTOS Height(Cm): 165 BSA: 1.57 Weight(Kg): 53.5 Heart Rate: 81 BP: 102 / 58 Quality: Good Order Provider: RADHA BUSTOS PROCEDURES: Echocardiographic Report: Transthoracic echocardiogram with complete 2D, M-Mode, and color Dopplerexamination. With Strain Analysis. INDICATIONS: Family History of Aortic Aneurysm and R01.1 Cardiac murmur, unspecified. MEASUREMENTS: 2D/MM Value Range Doppler ValueRange EF Mod BP 69 % [ 54 - 74 ] AV Mean PG 5mmHg EF Teich MM 61 % [ 54 - 74 ] AV Peak Paras 1.45m/s [ 1.00 - 1.70 ] Estimated EF 65-70 % AV Peak PG 8mmHg LVIDd 2D 4.41 cm [ 3.80 - 5.20 ] AV VTI 31.92cm LVIDd MM 4.76 cm [ 3.80 - 5.20 ] LVOT Peak Paras 1.24m/s [ 0.70 - 1.10 ] LVIDs 2D 2.51 cm [ 2.20 - 3.50 ] LVOT VTI 22.88cm LVIDs MM 3.22 cm [ 2.20 - 3.50 ] MV E Peak Paras 0.91m/s [ 0.60 - 1.30 ] LVPWd 2D 0.66 cm [ 0.60 - 0.90 ] MV A Peak Paras 0.74m/s [ 1.00 - 1.20 ] LVPWd MM 0.63 cm [ 0.60 - 0.90 ] MV Decel Time 198msec [ 104 - 258 ] IVSd 2D 0.56 cm [ 0.60 - 0.90 ] PV Peak Paras 1.13m/s [ 0.40 - 0.80 ] IVSd MM 0.58 cm [ 0.60 - 0.90 ] TR Peak Paras 2.40m/s [ 1.00 - 2.80 ] LA Dimension MM 2.72 cm [ 2.70 - 3.80 ] TR Peak PG 23mmHg AoR Diam MM 2.53 cm [ 2.70 - 3.70 ] RVSP 33.00mmHg [ 10.00 - 36.00 ] LA Volume Index 16 cc/m2 [ 16 - 34 ] Lateral E` 0.15m/s [ 0.10 - 0.15 ] E/E` 6 2D/MM Value Range Doppler ValueRange - FINDINGS: Interpretation Site: Exam was interpreted at [facility]. Left Ventricle: Normal left ventricular systolic function. No focal wall motionabnormalities. Normal left ventricular size. Normal left ventricular wall thickness. Normal leftventricular diastolic function. Ejection fraction is measured at 69 %. EjectionFraction is visually estimated to be 65-70 %. Global Longitudinal Strain is -19 %. GLS isnormal. Right Ventricle: Normal right ventricular size. Normal right ventricular systolicfunction. Left Atrium: The left atrium is normal in size. Right Atrium: The right atrium is normal in size. Atrial Septum: Normal atrial septum. Mitral Valve: Normal appearance of the mitral valve. Mild mitral valve regurgitation.There is no hemodynamically significant mitral stenosis by Doppler. Aortic Valve: No evidence of hemodynamically significant aortic stenosis by Doppler.Aortic cusps appear mildly sclerotic. Trileaflet aortic valve. Trace aortic valveregurgitation. Tricuspid Valve: Normal appearance of the tricuspid valve. Normal right ventricularsystolic pressure. Estimated peak RVSP is 33 mmHg. Mild tricuspid regurgitation. Pulmonic Valve: Normal appearance of the pulmonic valve. No pulmonic stenosis. Mildpulmonic regurgitation. Pericardium: Small pericardial effusion. Aorta: Normal aortic root. IVC: Normal size and no respiratory collapse consistent with elevated rightatrial pressure (5-10 mmHg). CONCLUSIONS: Normal left ventricular systolic function. No focal wall motionabnormalities. Normal left ventricular size. Normal left ventricular wall thickness. Normal leftventricular diastolic function. Ejection fraction is measured at 69 %. EjectionFraction is visually estimated to be 65-70 %. Global Longitudinal Strain is -19 %. GLS isnormal. Mild mitral valve regurgitation. Mild tricuspid regurgitation. Mild pulmonic regurgitation. Small pericardial effusion. Normal sinus rhythm. Electronically Signed By: Donaldo Peterson MD 04/19/2025 4:09:26 PM CDT Radha Bustos NP CV ECHO PROCEDURES Final Resu lt * US Arterial Doppler Lower Extremity Bilateral (04/18/2025 11:29 AM CDT) Anatomical Region Laterality Modality Vascular Bilateral Ultrasound 04/18/2025 10:5 6 AM CDT Narrative 04/18/2025 12:58 PM CDT Vascular & Vein Surgery [facility] [place] [address] Lower Extremity Arterial Doppler Report Patient Name: DAIN DECKER R : 1980 Study Date: 04/18/2025 10:56:00 AM Gender: F Sales And Marketing Agent: Sophie Holloway RVT Location: [facility] Ref Provider: RADHA BUSTOS Quality: Adequate Order Provider: RADHA BUSTOS PROCEDURES: Arterial Report: Bilateral lower extremity arterial Doppler exam at rest. INDICATIONS: RLE rash intermittent x 3 months. HISTORY: No PMH. COMPARISONS: No previous exams. MEASUREMENTS: Right Value Left Value Rt Brachial Pressure 119 mmHg Lt Brachial Pressure 116 mmHg Rt CRYSTAL FLAT GRINDER Pressure 119 mmHg Lt CRYSTAL FLAT GRINDER Pressure 135 mmHg Rt DPA Pressure 122 mmHg Lt DPA Pressure 108 mmHg Rt PT POLY Resting 1 Lt PT POLY Resting 1.13 Rt DP POLY Resting 1.03 Lt DP POLY Resting 0.91 FINDINGS: Right Common Femoral Artery Analysis: The common femoral artery waveform is triphasic. Right Popliteal Artery Analysis: The popliteal waveform is triphasic. Right Posterior Tibial Artery Analysis: The posterior tibial waveform is triphasic. Right Anterior Tibial Artery Analysis: The anterior tibial waveform is triphasic. Left Common Femoral Artery Analysis: The common femoral artery waveform is triphasic. Left Popliteal Artery Analysis: The popliteal waveform is triphasic. Left Posterior Tibial Artery Analysis: The posterior tibial waveform is triphasic. Left Anterior Tibial Artery Analysis: The anterior tibial waveform is triphasic. CONCLUSIONS: 1. The bilateral lower extremity arterial Doppler reveals multiphasic waveforms in all distributions above with normal ankle/brachial indices and digit pressures. No evidence of lower extremity arterial occlusive disease at rest bilaterally. ATTESTATION: I have reviewed and interpreted the pertinent images and measurements of this study. I attest to the conclusions in the final report that is provided above. Electronically Signed By: Jacob Disla MD 04/18/2025 11:41:46 AM CDT Procedure Note Jacob Disla MD - 04/18/2025 Vascular & Vein Surgery [address] [place] [id number] Lower Extremity Arterial Doppler Report Patient Name: DAIN DECKER R : 1980 Study Date: 04/18/2025 10:56:00 AM Gender: F Sales And Marketing Agent: Sophie Holloway RVT Location: [facility] Ref Provider: RADHA BUSTOS Quality: Adequate Order Provider: RADHA BUSTOS PROCEDURES: Arterial Report: Bilateral lower extremity arterial Doppler exam at rest. INDICATIONS: RLE rash intermittent x 3 months. HISTORY: No PMH. COMPARISONS: No previous exams. MEASUREMENTS: Right Value Left Value Rt Brachial Pressure 119 mmHg Lt Brachial Pressure 116 mmHg Rt CRYSTAL FLAT GRINDER Pressure 119 mmHg Lt CRYSTAL FLAT GRINDER Pressure 135 mmHg Rt DPA Pressure 122 mmHg Lt DPA Pressure 108 mmHg Rt PT POLY Resting 1 Lt PT POLY Resting 1.13 Rt DP POLY Resting 1.03 Lt DP POLY Resting 0.91 FINDINGS: Right Common Femoral Artery Analysis: The common femoral artery waveform is triphasic. Right Popliteal Artery Analysis: The popliteal waveform is triphasic. Right Posterior Tibial Artery Analysis: The posterior tibial waveform is triphasic. Right Anterior Tibial Artery Analysis: The anterior tibial waveform is triphasic. Left Common Femoral Artery Analysis: The common femoral artery waveform is triphasic. Left Popliteal Artery Analysis: The popliteal waveform is triphasic. Left Posterior Tibial Artery Analysis: The posterior tibial waveform is triphasic. Left Anterior Tibial Artery Analysis: The anterior tibial waveform is triphasic. CONCLUSIONS: 1. The bilateral lower extremity arterial Doppler reveals multiphasicwaveforms in all distributions above with normal ankle/brachial indices and digitpressures. No evidence of lower extremity arterial occlusive disease at rest bilaterally. ATTESTATION: I have reviewed and interpreted the pertinent images and measurements ofthis study. I attest to the conclusions in the final report that is provided above. Electronically Signed By: Jacob Disla MD 04/18/2025 11:41:46 AM CDT Radha Bustos NP [facility] US PROCEDURES Final Resul t * Colonoscopy (11/06/2024 11:36 AM GUEST EXPERIENCE CAPTAIN) Anatomical Region Laterality Modality Other Narrative Procedure Note Tacos Best MD - 11/06/2024 11:36 AM [facility] GI ENDOSCOPY Patient Name: Dain Decker Procedure Date: 11/06/2024 11:36 AM Date of : 1980 Admit Type: Outpatient Age: 44 Gender: Female Attending MD: Tacos Best MD Room: [facility] ENDOSCOPY ROOM 04 Note Status: Finalized Procedure: Colonoscopy Indications: Abd pain, Chronic diarrhea, average risk Referring MD: Providers: Tacos Best MD Medicines: See the Anesthesia note for documentation of the administered medications Complications: No immediate complications. Estimated Blood Loss: Estimated blood loss was minimal. Procedure: Pre-Anesthesia Assessment: - Prior to the procedure, a History and Physicalwas performed, and patient medications and allergieswere reviewed. The risks and benefits of the procedureand the sedation options and risks were discussed withthe patient. All questions were answered and informed consent was obtained. Patient identification and proposed procedure were verified. After reviewingthe risks and benefits, the patient was deemed in satisfactory condition to undergo the procedure.The anesthesia plan was to use monitored anesthesiacare (MAC). Immediately prior to administration of medications, the patient was re-assessed foradequacy to receive sedatives. The heart rate, respiratory rate, oxygen saturations, blood pressure, adequacyof pulmonary ventilation, and response to care were monitored throughout the procedure. The physical status of the patient was re-assessed after the procedure. The benefits, risks and alternatives of theprocedure and sedation were discussed and informed consentwas obtained. All questions were answered. Please referto the signed informed consent document in the medical record. The scope was passed under direct vision.The PCF-PE613V colonoscope was introduced through theanus and advanced to the terminal ileum, with identification of the appendiceal orifice and IC valve. The colonoscopy was performed without difficulty. The patient tolerated the procedurewell. The quality of the bowel preparation was good.Scope insertion time was 11 minutes. Scope withdrawaltime was 18 minutes. Prep was administered in a splitdose. Findings: The perianal and digital rectal examinations were normal. The visualized terminal ileum appeared normal. Colonic mucosa normal. Random whole colon biopsies for histology were taken with a cold forceps for evaluation of microscopic colitis. Small internal hemorrhoids. Impression: - The examined portion of the visualized ileum was normal. - Colonic mucosa normal. Biopsied. - Hemorrhoids. Recommendation: - Await pathology results. - Resume previous diet today. - Discharge patient to home. - Patient has a contact number available for emergencies. The signs and symptoms of potential delayed complications were discussed with thepatient. Return to normal activities tomorrow. Written discharge instructions were provided to thepatient. - Repeat colonoscopy in 10 years for screening purposes. - I would be happy to see you in my GI clinic ifyou have further questions or concerns or if symptoms progress Tacos Best MD 11/06/2024 12:37:42 PM Number of Addenda: 0 Note Initiated On: 11/06/2024 11:36 AM Recognized by the [employer] for promoting quality in endoscopy Tacos Best MD ENDOSCOPY PROCEDURES Ting l Result * HM PAP SMEAR (08/27/2024 8:54 AM GUEST EXPERIENCE CAPTAIN) SCRIBED Pap test normal Nicole Bhakta MD HEALTH MAINTENANCE Final Result * Screening Mammogram Bilateral W Eliel (07/30/2024 10:41 AM CDT) Anatomical Region Laterality Modality Breast Bilateral Mammography Narrative 07/30/2024 3:21 PM CDT Mammogram Technique: Bilateral Digital Breast Tomosynthesis, Bilateral C-view 2D Screening mammogram. Views obtained: bilateral craniocaudal and bilateral mediolateral oblique. Computer Aided Detection was performed. Mammogram Findings: The present examination has been compared to prior imaging studies performed at [facility] on 05/06/2022 and 07/27/2023, and at [facility] on 02/18/2021. There are scattered areas of fibroglandular density. There is no suspicious abnormality in either breast. Impression: There is no mammographic evidence of malignancy. Annual screening mammography is recommended. OVERALL FINAL ASSESSMENT: BI-RADS CATEGORY 1: Negative. Procedure Note Kitty Kay MD - 07/30/2024 Mammogram Technique: Bilateral Digital Breast Tomosynthesis, Bilateral C-view 2D Screening mammogram. Views obtained: bilateral craniocaudal and bilateral mediolateral oblique. Computer Aided Detection was performed. Mammogram Findings: The present examination has been compared to prior imaging studies performed at [facility] on 05/06/2022 and 07/27/2023, and at [facility] on 02/18/2021. There are scattered areas of fibroglandular density. There is no suspicious abnormality in either breast. Impression: There is no mammographic evidence of malignancy. Annual screening mammography is recommended. OVERALL FINAL ASSESSMENT: BI-RADS CATEGORY 1: Negative. us Self Screening Mammogram IMG MAMMO PROCEDURES Fi nal Result from Last 3 Months or Most Recently Relevant to Health Maintenance Insurance [facility] HMO [facility] HMO Care Teams Retail Tire Sales Manager Relationship Specialty Start Date End Date Radha Bustos NP [address] [address] PCP - General Family Medicine 04/04/25 Nicole Bhakta MD [address] [address] Referring Physician Gynecology 08/22/24
--- OUTSIDE RECORDS SUMMARY | 2025-07-15 01:48 | XMS_ITS | Clinical Summary ---
Author Organization [facility] [employer] Address [address] [place] [address] Care Team Providers Care Meat Manager Name Role Phone John Russ MD Primary Care Provider [phone] Source Comments [facility] [employer],non-owned Affiliates and Associated Physician Practices is amultiple site organization consisting of ambulatory clinics and hospital sitesin [place], [place], [place] and [place]. This disclosure is being madepursuant to the Care Everywhere program and may not contain all information available regarding this patient. Last updated 18.[facility] [employer] Allergies Active Allergy Reactions Criticality Noted Date Comments Amoxicillin Nausea and/or Vomiting 04/08/2017 Erythromycin Nausea and/or Vomiting 04/08/2017 Medications * Be aware that medications may not be up to date on this document. Alwaysverify current medications with the patient. 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 Gender Identity Not on file Sexual Orientation Not on file Last Filed Vital Signs Vital Sign Reading Time Taken Comments Blood Pressure 92/64 11/23/2017 5:48 PM DIE CASTING MACHINE SETTER Pulse 73 11/23/2017 5:48 PM DIE CASTING MACHINE SETTER Temperature 37.1 C (98.7 F) 11/23/2017 5:48 PM DIE CASTING MACHINE SETTER Earlier reading from home 100.5 per patient Respiratory Rate 16 11/23/2017 5:48 PM DIE CASTING MACHINE SETTER Oxygen Saturation 99% 11/23/2017 5:4 8 PM DIE CASTING MACHINE SETTER Inhaled Oxygen Concentration - - Weight 54.4 kg (120 lb) 11/23/2017 5:48 PM DIE CASTING MACHINE SETTER Height 165.1 cm (5' 5) 11/23/2017 5:48 PM DIE CASTING MACHINE SETTER Body Mass Index 19.97 11/23/2017 5:48 PM DIE CASTING MACHINE SETTER Plan of Treatment Health Maintenance Due Date Last Done Comments COLOGUARD (AGES 45-75) - COL ON CA SCREENING 1980 COLON MONITORING 1980 COLONOSCOPY - COLON CA SCREENING 1980 CT COLONOGRAPHY - COLON CA SCREENING 1980 Colorectal Cancer Screening 1980 FIT - COLON CA SCREENING 1980 FLEX SIG - COLON CA SCREENING 1980 LIPID TESTING 1980 MAMMOGRAM 1980 HIV SCREENING 1995 HEPATITIS C SCREENING 03/29/1998 DTAP/TDAP/TD VACCINES (1 - Tdap) 1999 HEPATITIS B VACCINE (1 of 3 - 19+ 3-dose series) 1999 HPV VACCINE (1 - 3-dose SCDM series) 2007 DEPRESSION SCREENING 10/24/2024 COVID-19 VACCINE (1 - 2023-2 5 season) 2025 INFLUENZA VACCINE (#1) 2025 ZOSTER VACCINE (1 of 2) 2030 HIB VACCINE Aged Out No longer eligi ble based on patient's age to complete this topic MENINGOCOCCAL (Group B) VACC INE SHARED DECISION-MAKING Aged Out No longer eligibl e based on patient's age to complete this topic MENINGOCOCCAL GROUPS A/C/Y/W VACCINE Aged Out No longer eligible b ased on patient's age to complete this topic PNEUMOCOCCAL VACCINE Aged Out No long er eligible based on patient's age to complete this topic Insurance [employer] Care Teams Meat Manager Relationship Specialty Start Date End Date John Russ MD [address] [place] [id number] PCP - General 04/07/21
--- OUTSIDE RECORDS SUMMARY | 2025-07-15 01:48 | XMS_ITS | Encounter Summary ---
Author Organization [facility] Address [address] [place] [address] Phone Care Team Providers Care [employer] Miller Name Role Phone Nicole Bhakta MD Unavailable [phone] Radha Bustos NP Primary Care Provider [phone] Reason for Visit * Reason Onset Date Comments Scheduling Appointments 06/20/2025 Encounter Details Date Type Department Care Team (Late st Contact Info) Description 06/20/2025 Telephone [facility] ([facility]) - [facility] [address] [facility] [address]th Floor, [place] [address] Abhay Mae MD [address] [place], [place] [id number] Scheduling Appointments Social History Tobacco Use Types Packs/Day Years [...] on file Legal Sex Female 1:40 AM [employer] Gender Identity Female 03/09/2021 1:15 PM CDT Sexual Orientation Not on file documented as of this encounter Miscellaneous Notes * Telephone Encounter - Darby Peñaloza - 06/20/2025 12:53 PM CDT Patient Query: Was an attempt to transfer to the assigned clinical staff or backline? no Reason for call?: pt called to make appointment for CT scan results, next avaiable is in dec pt wonders if she can be seen or contacted before that. (Read message back to caller and ask them if there is anything else they'd like to add to the message) Who is the caller: patient What is the best number for them to contact for a call back: [phone] Last office visit: 06/07/2025 Date of Surgery: 11/06/2024 documented in this encounter Plan of Treatment Not on file documented as of this encounter Visit Diagnoses Not on filedocumented in this encounter Care Teams [employer] Miller Relationship Specialty Start Date End Date Radha Bustos NP [address] [facility] [address] [place] [address] PCP - General Family Medicine 04/04/25 Nicole Bhakta MD [address] [place] [address] Referring Physician Gynecology 08/22/24 documented as of this encounter
--- NOTE | 2025-07-15 07:34 | WPDHPUPDATE1 ---
History and Physical Update Update Date/Time: 07/15/25 07:34 History and Physical has been reviewed, including an updated exam of the patient. There are NO changes in the patient's condition. Risks, benefits, and alternatives have been discussed and questions answered. Patient agrees to proceed with procedure.
--- NOTE | 2025-07-15 07:34 | PM.HPGS ---
History of Present Illness History of Present Illness Consent: Risks, benefits, and alternatives have been discussed and questions answered. Patient agrees to proceed with procedure. Chief complaint: abnormal uterine bleeding Narrative: Bianca Fitzgerald is a 45 year old female with prolonged and heavy bleeding. Cycles have become irregular. It was recommended to undergo D&C hysteroscopy for further evaluation. Pelvic ultrasound is normal. Risks of infection, bleeding, perforation, and possible pathology are discussed with the patient. She voices understanding and agrees to proceed. 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 Surgical History Surgical History (Updated 07/15/25 @ 07:37 by Nicole Bhakta MD) History of hysteroscopy 2020 benign History of tonsillectomy and adenoidectomy S/P breast biopsy 2018 and 2020 benign S/P bilateral breast reduction S/P appy Social History Social History Smoking status: Never smoker Alcohol intake: never Substance use: never Living arrangements: with family Additional living arrangements comments: & 4 SONS Spiritual care concerns: No Meds Home Medications and Allergies Home Medications ?Medication ?Instructions ?Recorded ?Confirmed ?Type ergocalciferol (vitamin D2) 1,250 50,000 unit PO WEEKLY 03/10/21 07/09/25 History mcg (50,000 unit) capsule hydrocortisone 1 % topical cream 1 applic topical TID PRN rash 07/18/21 07/09/25 Rx #28.35 grams Lactobacillus acidophilus 10 100 mmu cells PO DAILY 07/09/25 07/09/25 History billion cell capsule (Probacap) atogepant 60 mg tablet (Qulipta) 60 mg PO QPM 07/09/25 07/09/25 History hyoscyamine sulfate 0.375 mg 0.375 mg PO QPM 07/09/25 07/09/25 History tablet,extended release,12 hr naltrexone 4.5 mg capsule 4.5 mg PO HS 07/09/25 07/09/25 History (Lotrexone) ubrogepant 100 mg tablet (Ubrelvy) 100 mg PO DAILY PRN migraine 07/09/25 07/09/25 History headache Allergies Allergy/AdvReac Type Severity Reaction Status Date / Time erythromycin base AdvReac Intermediate Vomiting Verified 07/09/25 10:36 Penicillins AdvReac Intermediate Vomiting Verified 07/09/25 10:36 Exam Const: General: healthy appearing and alert Orientation/consciousness: patient oriented x3 Resp: Effort & Inspection: normal respiratory effort : External Female Exam: normal external appearance Speculum Exam - Vagina: normal appearance of the vagina and normal vaginal discharge Speculum Exam - Cervix: normal appearance of the cervix Bimanual exam- vagina & uterus: uterine size normal and consistency normal Bimanual Exam- Adnexa, other: normal adnexae and No adnexal tenderness Neuro: General: patient oriented x3 Assessment and Plan Assessment and plan (1) Menorrhagia: Code(s): N92.0 - Excessive and frequent menstruation with regular cycle Status: Acute Assessment and Plan: Plan to proceed with D&C hysteroscopy
[2025-07-15 08:30] VITALS: BP 122/74; PULSE 82; RESP 14; TEMP 36.7; O2SAT 100
[2025-07-15] MEDS: LACTATED RINGERS 1,000 ML 30 ML IV CONT (08:30)
[2025-07-15] MEDS: ACETAMINOPHEN 500 MG TABLET 1000 MG PO (08:30)
[2025-07-15 08:50] LABS: BEDSIDEPREGUCG Negative (Negative)
--- NOTE | 2025-07-15 08:53 | P.PNAN_ITS ---
Anes - Initial Pre Proc Eval Procedure: Operation Date: 07/15/25 09:45 Proposed Procedures p Hysteroscopy Dilation and Curettage - Nicole Bhakta MD Date/Time: 07/15/25 08:53 Surgeon: Nicole Bhakta MD Pre Op Diagnosis: abnormal uterine bleeding Patient Data Age: 45 Gender: F Height: 1.65 m Weight: 52.3 kg Allergies Allergy/AdvReac Type Severity Reaction Status Date / Time erythromycin base AdvReac Intermediate Vomiting Verified 07/09/25 10:36 Penicillins AdvReac Intermediate Vomiting Verified 07/09/25 10:36 Home Medications ?Medication ?Instructions ?Recorded ?Confirmed ?Type ergocalciferol (vitamin D2) 1,250 50,000 unit PO WEEKL Y 03/10/21 07/09/25 History mcg (50,000 unit) capsule hydrocortisone 1 % topical cream 1 applic topical TID PRN rash 07/18/21 07/09/25 Rx #28.35 grams Lactobacillus acidophilus 10 100 mmu cells PO DAILY 07/09/25 History billion cell capsule (Probacap) atogepant 60 mg tablet (Qulipta) 60 mg PO QPM 07/09/25 07/09/25 History hyoscyamine sulfate 0.375 mg 0.375 mg PO QPM 07/09/25 07/09/25 History tablet,extended release,12 hr naltrexone 4.5 mg capsule 4.5 mg PO HS 07/09/25 History (Lotrexone) ubrogepant 100 mg tablet (Ubrelvy) 100 mg PO DAILY PRN migraine 07/09/25 07/09/25 History headache Laboratory Tests 07/15/25 08:30 POC Urine HCG, Qual Negative (Negative) Patient hx anesthesia problems: none Family hx anesthesia problems: none Results Review: All pre-operative results and documents have been reviewed as part of the pre- operative evaluation. 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 Surgical History Surgical History History of hysteroscopy 2020 benign History of tonsillectomy and adenoidectomy S/P breast biopsy 2018 and 2020 benign S/P bilateral breast reduction S/P appy Social History Social History Smoking status: Never smoker Alcohol intake: never Substance use: never Living arrangements: with family Additional living arrangements comments: & 4 SONS Spiritual care concerns: No Anes - Eval Final PreProcedure Day of Procedure 07/15/25 08:53 Patient weight: normal Heart: regular rate and rhythm Lungs: clear to auscultation Airway: Mallampati scale class II Neurological: alert and oriented Last oral intake: >/= 8 hours ASA classification: II Emergent: no Anesthetic plan: proceed Anesthesia type and monitoring: general GIVS and standard monitoring Results Review: All pre-operative results and documents have been reviewed as part of the pre- operative evaluation. Informed Consent: The patient's anesthetic plan and its attendant risks and benefits were discussed with the patient/family/POA. Questions were solicited and answers provided to the satisfaction of the patient/family/POA.
--- NOTE | 2025-07-15 09:21 | S_PTH ---
PATIENT: Bianca Fitzgerald LOC: [facility]#:[id number] AGE/SX: 45/F ROOM: RE07/15/[address]: Nicole Bhakta MD : 1980 BED: DIS: 07/15/2025 SPEC #: [id number] RECD: 07/15/25 10:11 STATUS: GREG PADILLA #: [id number] [place]: 07/15/25 09:[address]: Nicole Bhakta DEPT: [facility] Surgical RECD BY: Anne-Marie Dukes ENTERED: 07/15/25 10:11 SP TYPE: Surgical OTHR DR: Radha Bustos, SHAREPOINT SPECIALIST Tissues: A - Endometrial Curettings Procedures: Hematoxylin and Eosin Stain Gross and Microscopic Level 4
[2025-07-15] MEDS: KETOROLAC 30 MG/ML VIAL (*BKC) IV PUSH (09:22)
--- NOTE | 2025-07-15 09:25 | W.PM.PROC2 ---
Procedure Note - Detailed Date of Procedure 07/15/25 Pre-op Diagnosis Menorrhagia Post-op Diagnosis Same Procedure Performed D&C hysteroscopy Surgeon Nicole Bhakta MD Anesthesia MAC Findings Uterus sounds to 8cm and appears grossly normal Description of Procedure The patient is taken to the operating room and placed under anesthesia in the dorsal lithotomy position. She was prepped and draped in the usual sterile fashion. [place] speculum was placed in the vagina and the cervix was grasped on the anterior lip with a tenaculum. The uterus is sounded to 8cm. The diagnostic hysteroscope was placed and with no abnormalities noted hysteroscope was removed. The sharp curette is used to curette the endometrium until a good uterine cry was noted in all areas. All instruments are removed. Sponge, needle, and instrument counts are correct per the OR staff. The patient is taken to recovery in stable condition. Estimated Blood Loss 5 Drains No Packing No Pathology Yes (Endometrial curettings) Complications No immediate complications Condition Stable Disposition PACU
[2025-07-15 09:28] VITALS: BP 114/64; PULSE 60; RESP 16; O2SAT 100
[2025-07-15 09:50] VITALS: BP 107/61; PULSE 59; RESP 20
[2025-07-15 10:20] VITALS: BP 110/67; PULSE 63; RESP 20
[2025-07-15 10:35] VITALS: BP 110/62; PULSE 74; RESP 20
== END 2025-07-15 10:36 | disposition home or self-care (01) ==
PROVIDERS: PCP Nurse Practitioner Family; Visit Provider Obstetrics & Gynecology Gynecology
PROC: 0U5B8ZZ Destruction of Endometrium, Via Natural or Artificial Opening Endoscopic (ICD-10-PCS; CPT 58563; principal; 2025-07-15 09:45)
DX: N92.0 Excessive and frequent menstruation with regular cycle (principal); N85.01 Benign endometrial hyperplasia
CPT/HCPCS: 58558; 88305; A9270; J1885; J2003; J2250; J2405; J2704; J3010; J7120